=== PATIENT | female | born 1940 | race Caucasian/White ===

== ENCOUNTER 2017-01-19 20:29 | Observation (INO) | payer MEDICARE ==
--- NOTE | 2017-01-19 20:57 | ED ---
Arrhythmia/Palpitations HPI - General Source: patient, RN notes reviewed Mode of arrival: wheelchair Limitations: no limitations - History of Present Illness MD Complaint: palpitations <Sony Fritz - Last Filed: 01/19/17 20:58> <Sony Mukherjee - Last Filed: 01/19/17 22:28> - General Chief Complaint: Arrhythmia/Palpitations Stated Complaint: heart palps Time Seen by Provider: 01/19/17 20:40 - History of Present Illness Initial Comments: This is a 76-year-old female who presents with complaints of elevated heart rate palpitations some lightheadedness and feeling tired. She states she does have a history of elevated heart rate has been on a monitor for 8 days now she also does state that she was recently switched from metoprolol to verapamil 80 mg twice a day. She is only taken 4 pills us far. She denies any overt chest pain does complain some anterior neck discomfort is mild in nature. This still somewhat achy. She has no other complaints such as cough fevers chills sweats or other symptoms. (Sony Fritz) - Related Data Allergies Allergy/AdvReac Type Severity Reaction Status Date / Time latex AdvReac Rash/Hives Verified 01/19/17 20:57 Review of Systems ROS Other: All systems not noted in ROS Statement are negative. <Sony Fritz - Last Filed: 01/19/17 20:58> ROS Other: All systems not noted in ROS Statement are negative. <Sony Mukherjee - Last Filed: 01/19/17 22:28> ROS Statement: Those systems with pertinent positive or pertinent negative responses have been documented in the HPI. Past Medical History Past Medical History: No Reported History History of Any Multi-Drug Resistant Organisms: None Reported Past Surgical History: No Surgical Hx Reported Past Psychological History: No Psychological Hx Reported Smoking Status: Never smoker Past Alcohol Use History: None Reported Past Drug Use History: None Reported <Sony Fritz - Last Filed: 01/19/17 20:58> General Exam Limitations: no limitations General appearance: alert, in no apparent distress Head exam: Present: atraumatic, normocephalic, normal inspection Eye exam: Present: normal appearance, PERRL, EOMI. Absent: scleral icterus, conjunctival injection, periorbital swelling ENT exam: Present: normal exam, mucous membranes moist Neck exam: Present: normal inspection. Absent: tenderness, meningismus, lymphadenopathy Respiratory exam: Present: normal lung sounds bilaterally. Absent: respiratory distress, wheezes, rales, rhonchi, stridor Cardiovascular Exam: Present: regular rate, normal rhythm, normal heart sounds. Absent: systolic murmur, diastolic murmur, rubs, gallop, clicks GI/Abdominal exam: Present: soft, normal bowel sounds. Absent: distended, tenderness, guarding, rebound, rigid Extremities exam: Present: normal inspection, full ROM, normal capillary refill. Absent: tenderness, pedal edema, joint swelling, calf tenderness Back exam: Present: normal inspection Neurological exam: Present: alert, oriented X3, CN II-XII intact Psychiatric exam: Present: normal affect, normal mood Skin exam: Present: warm, dry, intact, normal color. Absent: rash <Sony Fritz - Last Filed: 01/19/17 20:58> <Sony Mukherjee - Last Filed: 01/19/17 22:28> - General Exam Comments Initial Comments: Is a well-developed well-nourished awake alert oriented 3 female (LamSony) EKG Findings - EKG Results: EKG: interpreted by ERMD, sinus rhythm (Sinus rhythm a rate 72. Interval 122 QRS duration 64 daily since QTC of 14/448 evidence of possible left atrial enlargement no acute ST-T wave changes.) <Sony Fritz - Last Filed: 01/19/17 20:58> - EKG Comments: EKG Findings:: EKG shows normal sinus rhythm with a ventricular rate of 72, CO interval 122, QRS duration 64, QTC 448, there is T-wave inversion in V2, otherwise no signs of acute ischemia or infarction <Sony Mukherjee - Last Filed: 01/19/17 22:28> Medical Decision Making <Sony Fritz - Last Filed: 01/19/17 20:58> - Lab Data Result diagrams: 01/19/17 21:13 01/19/17 21:13 <Sony Mukherjee - Last Filed: 01/19/17 22:28> - Medical Decision Making Patient was signed out from the previous physician. 78-year-old female presenting with chief complaint of palpitations. She is currently on a monitor and has had the sensation of a racing heart over the last 24 hours. Denies any chest pain. Does state she has had some nausea throughout the day today. No vomiting. 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 Chest x-ray shows no acute findings. EKG is nonischemic, no arrhythmia. Laboratory studies including CBC, CMP, cardiac enzymes and d-dimer is unremarkable. Although the patient does not have chest pain, she does have some nausea and neck pain. Patient denies any recent stress test or heart catheterization. Patient will be placed in observation for telemetry monitoring, repeat cardiac enzymes, and cardiology evaluation. (Sony Mukherjee) - Lab Data Lab Results 01/19/17 01/19/17 01/19/17 Range/Units 21:13 21:13 21:13 WBC 6.2 (3.8-10.6) k/uL RBC 3.87 (3.80-5.40) m/uL Hgb 12.2 (11.4-16.0) gm/dL Hct 37.8 (34.0-46.0) % MCV 97.6 (80.0-100.0) fL MCH 31.4 (25.0-35.0) pg MCHC 32.2 (31.0-37.0) g/dL RDW 15.1 (11.5-15.5) % Plt Count 244 (150-450) k/uL Neutrophils % 49 % Lymphocytes % 37 % Monocytes % 6 % Eosinophils % 2 % Basophils % 1 % Neutrophils # 3.0 (1.3-7.7) k/uL Lymphocytes # 2.3 (1.0-4.8) k/uL Monocytes # 0.4 (0-1.0) k/uL Eosinophils # 0.1 (0-0.7) k/uL Basophils # 0.1 (0-0.2) k/uL PT (9.0-12.0) sec INR (<1.2) APTT (22.0-30.0) sec D-Dimer (<0.60) mg/L FEU Sodium 140 (137-145) mmol/L Potassium 3.9 (3.5-5.1) mmol/L Chloride 103 (98-107) mmol/L Carbon Dioxide 26 (22-30) mmol/L Anion Gap 11 mmol/L BUN 9 (7-17) mg/dL Creatinine 0.60 (0.52-1.04) mg/dL Est GFR (MDRD) Af Amer >60 (>60 ml/min/1.73 sqM) Est GFR (MDRD) Non-Af >60 (>60 ml/min/1.73 sqM) Glucose 89 (74-99) mg/dL Calcium 9.1 (8.4-10.2) mg/dL Magnesium 1.8 (1.6-2.3) mg/dL Total Bilirubin 0.7 (0.2-1.3) mg/dL AST 18 (14-36) U/L ALT 24 (9-52) U/L Alkaline Phosphatase 106 (38-126) U/L Total Creatine Kinase 48 (30-135) U/L CK-MB (CK-2) 0.6 (0.0-2.4) ng/mL CK-MB (CK-2) Rel Index 1.3 Troponin I <0.012 (0.000-0.034) ng/mL Total Protein 6.7 (6.3-8.2) g/dL Albumin 4.2 (3.5-5.0) g/dL 01/19/17 Range/Units 21:13 WBC (3.8-10.6) k/uL RBC (3.80-5.40) m/uL Hgb (11.4-16.0) gm/dL Hct (34.0-46.0) % MCV (80.0-100.0) fL MCH (25.0-35.0) pg MCHC (31.0-37.0) g/dL RDW (11.5-15.5) % Plt Count (150-450) k/uL Neutrophils % % Lymphocytes % % Monocytes % % Eosinophils % % Basophils % % Neutrophils # (1.3-7.7) k/uL Lymphocytes # (1.0-4.8) k/uL Monocytes # (0-1.0) k/uL Eosinophils # (0-0.7) k/uL Basophils # (0-0.2) k/uL PT 10.0 (9.0-12.0) sec INR 1.0 (<1.2) APTT 22.3 (22.0-30.0) sec D-Dimer 0.44 (<0.60) mg/L FEU Sodium (137-145) mmol/L Potassium (3.5-5.1) mmol/L Chloride (98-107) mmol/L Carbon Dioxide (22-30) mmol/L Anion Gap mmol/L BUN (7-17) mg/dL Creatinine (0.52-1.04) mg/dL Est GFR (MDRD) Af Amer (>60 ml/min/1.73 sqM) Est GFR (MDRD) Non-Af (>60 ml/min/1.73 sqM) Glucose (74-99) mg/dL Calcium (8.4-10.2) mg/dL Magnesium (1.6-2.3) mg/dL Total Bilirubin (0.2-1.3) mg/dL AST (14-36) U/L ALT (9-52) U/L Alkaline Phosphatase (38-126) U/L Total Creatine Kinase (30-135) U/L CK-MB (CK-2) (0.0-2.4) ng/mL CK-MB (CK-2) Rel Index Troponin I (0.000-0.034) ng/mL Total Protein (6.3-8.2) g/dL Albumin (3.5-5.0) g/dL Disposition <Sony Fritz - Last Filed: 01/19/17 20:58> Decision to Admit Reason: Admit from EC Decision Date: 01/19/17 Decision Time: 22:28 <Sony Mukherjee - Last Filed: 01/19/17 22:28> Clinical Impression: Palpitations Disposition: ADMITTED IP TO THIS [facility] Condition: Stable Referrals: Brenda Lawrence DO [Primary Care Provider] - 1-2 days
[2017-01-19 21:28] LABS: Aty Lym Flag Slight; Basophils # (A) 0.1 k/uL (0-0.2); Basophils % (A) 1 %; CH 32.5; CHCM 33.5; Eosinophils # (A) 0.1 k/uL (0-0.7); Eosinophils % (A) 2 %; HCT 37.8 % (34.0-46.0); HDW 2.56; HGB 12.2 gm/dL (11.4-16.0); Luc # (Auto) 0.32; Luc % (Auto) 5; Lymphocytes # (A) 2.3 k/uL (1.0-4.8); Lymphocytes % (A) 37 %; MCH 31.4 pg (25.0-35.0); MCHC 32.2 g/dL (31.0-37.0); MCV 97.6 fL (80.0-100.0); Mean Platelet Volume 7.9; Monocytes # (A) 0.4 k/uL (0-1.0); Monocytes % (A) 6 %; Neutrophils % (A) 49 %; RBC 3.87 m/uL (3.80-5.40); RDW 15.1 % (11.5-15.5); WBC 6.2 k/uL (3.8-10.6); WBC (Perox) 5.88
[2017-01-19 21:42] LABS: Partial Thromboplastin Time 22.3 sec (22.0-30.0)
[2017-01-19 22:00] LABS: ALT 24 U/L (9-52); AST 18 U/L (14-36); Alkaline Phosphatase 106 U/L (38-126); Anion Gap 11 mmol/L; Blood Urea Nitrogen 9 mg/dL (7-17); Calcium 9.1 mg/dL (8.4-10.2); Carbon Dioxide 26 mmol/L (22-30); Chloride 103 mmol/L (98-107); Creatine Kinase 48 U/L (30-135); Glucose 89 mg/dL (74-99); Magnesium 1.8 mg/dL (1.6-2.3); Non-African American GFR(MDRD) >60 (>60 ml/min/1.73 sqM); Potassium 3.9 mmol/L (3.5-5.1); Sodium 140 mmol/L (137-145); Total Bilirubin 0.7 mg/dL (0.2-1.3); Total Protein 6.7 g/dL (6.3-8.2)
[2017-01-19 22:11] LABS: Creatine Kinase MB 0.6 ng/mL (0.0-2.4); Troponin I <0.012 ng/mL (0.000-0.034)
--- NOTE | 2017-01-19 22:15 | XR ---
EXAM: XR Chest, 2 Views CLINICAL HISTORY: Reason: dysrhythmia TECHNIQUE: Frontal and lateral views of the chest. COMPARISON: No relevant prior studies available. FINDINGS: Lungs: No lobar consolidation or pulmonary edema. Surgical clips demonstrated in the axilla bilaterally as well as overlying the left pulmonary base. Pleural space: Unremarkable. No pneumothorax. Heart: Unremarkable. No cardiomegaly. Mediastinum: Unremarkable. Bones/joints: Unremarkable. IMPRESSION: No acute findings.
[2017-01-19] MEDS ORDERED: NALOXONE 0.4 MG/ML 1 ML VIAL IV PRN (22:17)
[2017-01-19] MEDS ORDERED: ONDANSETRON 4 MG/2 ML VIAL IVP PRN (22:17)
[2017-01-19] MEDS ORDERED: ASPIRIN 325 MG TAB PO STA (22:23)
[2017-01-19] MEDS ORDERED: SODIUM CHLORIDE 0.9% 1,000 ML IV SCH (22:30)
[2017-01-19 23:36] VITALS: BMI 27.1
[2017-01-20 04:43] LABS: Creatine Kinase 45 U/L (30-135)
[2017-01-20 04:56] LABS: Creatine Kinase MB 0.5 ng/mL (0.0-2.4); Troponin I <0.012 ng/mL (0.000-0.034)
[2017-01-20] MEDS ORDERED: VERAPAMIL 80 MG TAB PO SCH (09:00)
[2017-01-20 09:18] LABS: Creatine Kinase 48 U/L (30-135)
[2017-01-20 09:32] LABS: Creatine Kinase MB 0.5 ng/mL (0.0-2.4); Troponin I <0.012 ng/mL (0.000-0.034)
[2017-01-20] MEDS: ASPIRIN 81 MG PO SCH (10:40)
--- NOTE | 2017-01-20 12:38 | CONS ---
Mrs. Butler came to the hospital complaining of palpitations and nausea. She is a patient of Dr. Raquel Mckeon. She is wearing an event monitor for SVT. She was originally on beta blockers. Three days back this was switched to verapamil 80 mg twice daily. Here in the hospital she has had 2 episodes of SVT. She is also complaining of nausea. Blood pressure is normal. Heart rates are normal. She has no bradycardia. She has no evidence for bradycardia. Past history of hypertension, normal coronary arteries in 2010, normal left ventricular ejection fraction and a history of bronchiectasis and interstitial lung disease right upper lobe area. Medications include aspirin, atorvastatin, Imitrex and verapamil 80 mg twice daily p.o. short acting. She has hypertension and dyslipidemia and pulmonary hypertension. She also has an aneurysm of the ascending aorta measuring about [address] scan in July , being followed noninvasively. REVIEW OF SYSTEMS: No fever, chills or rigors. No cough or expectoration. She does have nausea, no vomiting, no diarrhea, no hematuria. No musculoskeletal complaints. She does complain of palpitations. Heart sounds are normal. No murmurs or gallops. Breath sounds are clear. I do not hear any rhonchi or crackles. Abdomen is soft, nontender. Extremities are warm. Head and neck examination normal. IMPRESSION: Recurrent supraventricular tachycardia, drug refractory, as she has failed metoprolol, now she is on verapamil for three days. She continues to have palpitations. She is ( ) with an EP study and does not want to do so. She stated this quite clearly to me. I would check a TSH level, switch to a long-acting verapamil 180 mg p.o. daily. I would observe her on telemetry for the next 48 hours to make sure she does not get bradycardiac and that she does not have breakthrough episodes. I would maximize her verapamil and even consider adding low dose flecainide for suppressive therapy especially if she does not want to proceed with an EP study. MTDD
[2017-01-20] MEDS: VERAPAMIL SR 180 MG TABLET.ER PO SCH (16:31)
[2017-01-20] MEDS ORDERED: ATORVASTATIN 10 MG TAB PO SCH (22:00)
--- NOTE | 2017-01-20 22:30 | P.HPIM ---
History of Present Illness H&P Date: 01/20/17 Chief Complaint: Palpitations This is a 76-year-old female with a past medical history of hypertension, SVT on follow-up with cardiology clinic currently on event monitor presents with complaints of elevated heart rate palpitations some lightheadedness and feeling tired. Patient was seen by cardiology recently and her beta blockers have been changed to verapamil 80 mg twice a day. She has no other complaints such as cough fevers chills sweats or other symptoms. Patient had a chest x-ray showed no acute process. EKG showed sinus rhythm. TSH within normal limits at 1.8 Review of Systems CONSTITUTIONAL: No fever, no malaise, no fatigue. HEENT: No recent visual problems or hearing problems. Denied any sore throat. CARDIOVASCULAR: No chest pain, orthopnea, PND, no palpitations, no syncope. PULMONARY: , no hemoptysis. GASTROINTESTINAL: No diarrhea, no nausea, no vomiting, no abdominal pain. Normoactive bowel sounds. NEUROLOGICAL: No headaches, no weakness, no numbness. HEMATOLOGICAL: Denies any bleeding or petechiae. GENITOURINARY: Denies any burning micturition, frequency, or urgency. MUSCULOSKELETAL/RHEUMATOLOGICAL: Denies any joint pain, swelling, or any muscle pain. ENDOCRINE: Denies any polyuria or polydipsia. The rest of the 14-point review of systems is negative. 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 breast ca norma, AAA - being watched 08/2016 CT done History of Any Multi-Drug Resistant Organisms: None Reported Past Surgical History: Back Surgery, Bladder Surgery, Cholecystectomy, Hernia Repair, Hysterectomy Additional Past Surgical History / Comment(s): right breast lumpectomy, left mastectomy with reconstruction Past Anesthesia/Blood Transfusion Reactions: No Reported Reaction Past Psychological History: No Psychological Hx Reported Smoking Status: Never smoker Past Alcohol Use History: None Reported Past Drug Use History: None Reported - Past Family History Mother Additional Family Medical History / Comment(s): "heart problems" Father Family Medical History: COPD Brother(s) Family Medical History: Cancer Additional Family Medical History / Comment(s): at 18 from [place] Medications and Allergies Home Medications Medication Instructions Recorded Confirmed Type Ascorbic Acid [Vitamin C] 500 mg PO DAILY 01/19/17 01/19/17 History Aspirin EC [Ecotrin Low Dose] 162 mg PO DAILY 01/19/17 01/19/17 History Atorvastatin [Lipitor] 10 mg PO Q48H 01/19/17 01/19/17 History Cholecalciferol (Vitamin D3) 2,000 unit PO DAILY 01/19/17 01/19/17 History [Vitamin D3] Multivitamins, Thera [Multivitamin 1 tab PO DAILY 01/19/17 01/19/17 History (formulary)] SUMAtriptan SUCCINATE [Imitrex] 50 - 100 mg PO DAILY PRN 01/19/17 01/19/17 History Verapamil [Isoptin] 80 mg PO BID 01/19/17 01/19/17 History Allergies Allergy/AdvReac Type Severity Reaction Status Date / Time latex AdvReac Rash/Hives Verified 01/19/17 20:57 Physical Exam Vitals: Vital Signs Temp Pulse Pulse Pulse Resp BP BP 01/20/17 16:00 98.2 F 72 16 129/64 01/20/17 12:00 98.1 F 97 16 150/74 01/20/17 08:00 97.8 F 79 14 135/73 01/20/17 04:18 97.9 F 76 16 116/66 01/20/17 04:00 84 16 01/20/17 00:00 83 16 01/19/17 23:04 97.7 F 73 16 137/70 01/19/17 22:16 97.4 F L 70 18 140/76 01/19/17 21:18 70 01/19/17 20:42 97.5 F L 83 20 154/72 Pulse Ox 01/20/17 16:00 92 L 01/20/17 12:00 92 L 01/20/17 08:00 94 L 01/20/17 04:18 93 L 01/20/17 04:00 01/20/17 00:00 01/19/17 23:04 96 01/19/17 22:16 97 01/19/17 21:18 01/19/17 20:42 91 L Intake and Output 01/20/17 01/20/17 01/20/17 06:59 14:59 22:59 Other: Voiding Method Toilet Toilet # Voids 2 PHYSICAL EXAMINATION: Patient is lying in the bed comfortably, no acute distress, awake alert and oriented.. HEENT: Normocephalic. Neck is supple. Pupils reactive. Nostrils clear. Oral cavity is moist. Ears reveal no drainage. Neck reveals no JVD, carotid bruits, or thyromegaly. CHEST EXAMINATION: Trachea is central. Symmetrical expansion. Lung castano clear to auscultation and percussion. CARDIAC: Normal S1, S2 with no gallops. No murmurs ABDOMEN: Soft. Bowel sounds normal. No organomegaly. No abdominal bruits. Extremities reveal no edema. No clubbing or cyanosis Neurologically awake, alert, oriented x3 with well-coordinated movements. Skin: no rash or skin lesions Musculoskeletal: no joint swelling or deformity. Results CBC & Chem 7: 01/19/17 21:13 01/19/17 21:13 Thrombosis Risk Factor Assmnt - Choose All That Apply Each Risk Factor Represents 3 Points: Age 75 years or older Thrombosis Risk Factor Assessment Total Risk Factor Score: 3 Thrombosis Risk Factor Assessment Level: Moderate Risk Assessment and Plan Plan: Palpitations secondary to supraventricular tachycardia. Ascending aortic aneurysm 4 cm Hypertension Hyperlipidemia DVT prophylaxis Plan: Patient will be continued on telemetry. Patient was seen by cardiology and increase the verapamil dose to 3 times daily. Patient failed outpatient therapy with metoprolol. Serial EKGs and troponins are negative. TSH within normal limits. We'll continue to monitor the patient and further recommendations based on the clinical course
[2017-01-20] MEDS: ACETAMINOPHEN TAB 325 MG TAB PO PRN (23:27)
[2017-01-21] MEDS: ACETAMINOPHEN TAB 325 MG TAB PO PRN (07:57)
--- NOTE | 2017-01-21 07:58 | P.PN ---
Subjective Principal diagnosis: svt Patient is doing well. She has not had any sustained arrhythmias since yesterday after verapamil as are 180 mg by mouth daily was instituted. However she did get verapamil regular, 80 mg in the morning prior to that. Therefore we should observe her on verapamil SR 180 mg a day for at least a week before making any changes in her medication dose. She denies any chest discomfort undue shortness of breath she is lying comfortably in bed No arrhythmias, sustained, on telemetry Heart sounds S1 and S2 are normal no murmurs or gallops Breath sounds are normal no rhonchi no crackles Abdomen soft nontender Extremities warm no edema Blood pressure 134/71 mmHg respiratory rate 16 pulse rate in the 80s, afebrile 98.1F Impression Recurrent supraventricular tachycardia, symptomatic and rapid beta ravi. She had episodes on verapamil short-acting 80 mg twice daily 3 days after starting the medication. Yesterday I switched her to long-acting verapamil 180 mg by mouth daily. She has not had any episodes for the last 12-18 hours. History of dyslipidemia, on atorvastatin Patient is quite adamant that she does not want an EP study and would prefer maximal medical treatment Plan She will go home today and see Dr. Mckeon in about 2 weeks he did she already has an event monitor which she should continue The dose of verapamil can be increased to 240 mg by mouth daily only if she feels the current dose after being on it for at least one week Objective - Vital Signs Vital signs: Vital Signs Temp 98.1 F 01/21/17 04:00 Pulse 99 01/21/17 04:00 Resp 16 01/21/17 04:00 BP 134/71 01/21/17 04:00 Pulse Ox 96 01/21/17 04:00 Intake & Output 01/20/17 01/21/17 01/21/17 18:59 06:59 18:59 Weight 67.132 kg Other: Voiding Method Toilet Toilet # Voids 3 - Labs CBC & Chem 7: 01/19/17 21:13 01/19/17 21:13
[2017-01-21] MEDS: ASPIRIN 81 MG PO SCH (07:59)
[2017-01-21] MEDS: VERAPAMIL SR 180 MG TABLET.ER PO SCH (07:59)
[2017-01-21] MEDS ORDERED: VERAPAMIL SR 180 MG TABLET.ER PO SCH (09:00)
[2017-01-21 12:07] VITALS: RESP 16
[2017-01-21 16:03] VITALS: BP 102/54; PULSE 71; TEMP 98
--- NOTE | 2017-01-23 01:21 | P.DS ---
Providers Date of admission: 01/19/17 22:23 Expected date of discharge: 01/21/17 Attending physician: Laney Davis Consults: 01/19/17 22:20 Consult Physician Urgent Consulting Provider: Antoni Marin Consult Reason/Comments: Palpitations, Do you want consulting provider notified?: Yes, Notify in am Primary care physician: Brenda Lawrence Hospital Course: Discharge diagnosis Palpitations secondary to supraventricular tachycardia. Ascending aortic aneurysm 4 cm Hypertension Hyperlipidemia DVT prophylaxis Hospital course This is a 76-year-old female with a past medical history of hypertension, SVT on follow-up with cardiology clinic currently on event monitor presents with complaints of elevated heart rate palpitations some lightheadedness and feeling tired. Patient was seen by cardiology recently and her beta blockers have been changed to verapamil 80 mg twice a day. She has no other complaints such as cough fevers chills sweats or other symptoms. Patient had a chest x-ray showed no acute process. EKG showed sinus rhythm. TSH within normal limits at 1.8 Patient was continued on telemetry. Patient was seen by cardiology and increased the verapamil dose to 3 times daily. Patient failed outpatient therapy with metoprolol. Serial EKGs and troponins are negative. TSH within normal limits. Patient did improve clinically today. Heart rate is better controlled. Verapamil changed to 180 mg SR daily and Patient is Stable to be discharged home. PHYSICAL EXAMINATION: Patient is lying in the bed comfortably, no acute distress, awake alert and oriented.. HEENT: Normocephalic. Neck is supple. Pupils reactive. Nostrils clear. Oral cavity is moist. Ears reveal no drainage. Neck reveals no JVD, carotid bruits, or thyromegaly. CHEST EXAMINATION: Trachea is central. Symmetrical expansion. Lung castano clear to auscultation and percussion. CARDIAC: Normal S1, S2 with no gallops. No murmurs ABDOMEN: Soft. Bowel sounds normal. No organomegaly. No abdominal bruits. Extremities reveal no edema. No clubbing or cyanosis Neurologically awake, alert, oriented x3 with well-coordinated movements. Skin: no rash or skin lesions Musculoskeletal: no joint swelling or deformity. Patient Condition at Discharge: Stable Plan - Discharge Summary New Discharge Prescriptions: New Verapamil Sr [Isoptin Sr] 180 mg PO Q24H tab Continue Aspirin EC [Ecotrin Low Dose] 162 mg PO DAILY Ascorbic Acid [Vitamin C] 500 mg PO DAILY SUMAtriptan SUCCINATE [Imitrex] 50 - 100 mg PO DAILY PRN PRN Reason: Migraine Headache Multivitamins, Thera [Multivitamin (formulary)] 1 tab PO DAILY Cholecalciferol (Vitamin D3) [Vitamin D3] 2,000 unit PO DAILY Atorvastatin [Lipitor] 10 mg PO Q48H Discontinued Verapamil [Isoptin] 80 mg PO BID Discharge Medication List Ascorbic Acid [Vitamin C] 500 mg PO DAILY 01/19/17 [History] Aspirin EC [Ecotrin Low Dose] 162 mg PO DAILY 01/19/17 [History] Atorvastatin [Lipitor] 10 mg PO Q48H 01/19/17 [History] Cholecalciferol (Vitamin D3) [Vitamin D3] 2,000 unit PO DAILY 01/19/17 [History] Multivitamins, Thera [Multivitamin (formulary)] 1 tab PO DAILY 01/19/17 [History ] SUMAtriptan SUCCINATE [Imitrex] 50 - 100 mg PO DAILY PRN 01/19/17 [History] Verapamil Sr [Isoptin Sr] 180 mg PO Q24H tab 01/21/17 [Rx] Follow up Appointment(s)/Referral(s): Carmella Mckeon MD [STAFF PHYSICIAN] - 1 Week Brenda Lawrence DO [Primary Care Provider] - 1-2 days Activity/Diet/Wound Care/Special Instructions: keep event monitor on. see Dr. Marisol Mckeon week of - Feb. 1 New script for verapamil ER Discharge Disposition: HOME SELF-CARE
== END 2017-01-21 16:15 | disposition home or self-care (01) ==
LOC: EC 20:29 → 3OBS 22:23
PROVIDERS: ADMIT Hospitalist; ATTEND Hospitalist
DX: I47.1 Supraventricular tachycardia (principal); R11.0 Nausea; M54.2 Cervicalgia; I71.2 Thoracic aortic aneurysm, without rupture; I27.2 Other secondary pulmonary hypertension; I10 Essential (primary) hypertension; E78.5 Hyperlipidemia, unspecified; G43.909 Migraine, unspecified, not intractable, without status migrainosus; E78.00 Pure hypercholesterolemia, unspecified; Z79.899 Other long term (current) drug therapy; Z79.82 Long term (current) use of aspirin; Z82.5 Family history of asthma and other chronic lower respiratory diseases; Z85.3 Personal history of malignant neoplasm of breast; Z92.3 Personal history of irradiation; Z91.040 Latex allergy status
CPT/HCPCS: 96361 ×2; 96374; 99285; 36415; 93005; 85379; 80053; 82550 ×2; 82553 ×2; 83735; 84443; 84484 ×2; 85025; 85610; 85730; 71020; G0378 ×3; J2405

== ENCOUNTER → 2018-03-06 | Outpatient (CLI) | payer MEDICARE ==
[2018-03-06 13:17] LABS: Blood Urea Nitrogen 13 mg/dL (7-17)
--- NOTE | 2018-03-06 16:35 | CT ---
EXAMINATION TYPE: CT urogram wo/w con DATE OF EXAM: 03/06/2018 COMPARISON: CT abdomen pelvis 09/17/2014 INDICATION: hematuria DLP: 1327.90 mGycm, Automated exposure control for dose reduction was used. CONTRAST: 100 mL of Isovue 370. Study performed TECHNIQUE: Axial images were obtained from above the diaphragm to the pubic rami in the axial plane a t 5 mm thick sections. Reconstructed images are reviewed on the computer in the coronal plane. FINDINGS: Limited CT sections are obtained the lung bases. The lung bases are clear. Coronary artery calcific ations present. CT ABDOMEN: Liver: Normal Spleen: Normal Pancreas: Normal Adrenal glands: The adrenal glands are normal. Gallbladder: Surgically absent Kidneys: No masses are evident. No hydronephrosis is present. No cysts are present. Delayed images were obtained through the kidneys, which remain unremarkable. Aorta: Vascular calcification is within the aorta. Inferior vena cava: Normal. CT PELVIS: Loops of bowel within the abdomen and pelvis are normal. Studies performed without oral contrast limiting their evaluation. Appendix: Normal as visualized. Urinary bladder: Normal. Genitourinary structures: Uterus and ovaries are not identified. Osseous structures: No suspicious lytic or sclerotic lesions. Multilevel degenerative disc changes ar e present. 3-D urogram: Sequential images were obtained through the kidneys ureter and bladder. Renal contours a ppear normal. Renal collecting systems are normal. Kidneys on sequential images following normal jose randee course and contour to the urinary bladder. Urinary bladder appears unremarkable. IMPRESSIONS: 1. Normal CT urogram
== END | disposition home or self-care (01) ==
LOC: RADCTMAIN 12:36
PROVIDERS: ATTEND Urology
DX: R31.9 Hematuria, unspecified (principal); Z91.040 Latex allergy status
CPT/HCPCS: 82565; 84520; 74178; 74400; Q9967

== ENCOUNTER → 2019-05-16 | Outpatient (CLI) | payer MEDICARE ==
[2019-05-16 17:23] LABS: African American GFR (CKD) >90 (>60 ml/min/1.73 sqM); Blood Urea Nitrogen 16 mg/dL (7-17); Non-African American GFR(CKD) 87 (>60 ml/min/1.73 sqM)
--- NOTE | 2019-05-19 13:41 | CT ---
EXAMINATION TYPE: CT angio thor/abd pel aorta DATE OF EXAM: 05/16/2019 HISTORY: followup aneurysm COMPARISON: 09/17/2014 CT DLP: 445 mGycm. Automated Exposure Control for Dose Reduction was Utilized. TECHNIQUE: CTA scan of the chest abdomen pelvis is performed on a spiral scan at 5 mm thick sections . Three-D reconstructed images performed by the technologist are reviewed on the computer. FINDINGS: Aorta: Ascending thoracic aorta at the level the main pulmonary artery is 4.1 cm. The main pulmonary artery the bifurcation is 2.6 cm. Aortic root is 4.0 cm. Transverse thoracic aortic arch is 3.1 cm. Descending thoracic aorta at the le tangela of the diaphragm is 2.2 cm. Proximal abdominal aorta below the superior mesenteric artery is 1.8 cm AP. There are 2 renal arteries. Below the renal arteries the AP dimension is 2.0 cm. The aorta tap ers to the bifurcation. Vascular calcifications within the aorta. Vascular calcifications within the iliac vessels. The common femoral arteries are patent. CT thorax: Some mild coronary artery calcification is present. Some mild streak opacities at the righ t base may be some atelectasis. No enlarged mediastinal or hilar adenopathy is evident. There is a 1.1 cm lymph node in the retrocrural space which is enlarged. Normal less than 0.[address] ABDOMEN: At this phase of contrast the liver spleen pancreas are normal. Gallbladder is surgically absent. The adrenal glands are unremarkable. Kidneys appear unremarkable. Vascular calcifications wi thin the aorta. Inferior vena cava is normal. Loops of bowel without oral contrast appear unremarkabl e CT PELVIS: Loops of bowel within the pelvis have some diverticular changes without acute diverticulit is of the sigmoid colon. The appendix is normal and air-filled. Urinary bladder is unremarkable the u terus and ovaries appear to be absent. IMPRESSION: 1. Ascending thoracic aortic aneurysm with an AP dimension of 4.1 cm at the level the main pulmonary artery. 2. Remainder of the chest abdomen and pelvis within the [id number] is essentially unremarkable.
== END | disposition home or self-care (01) ==
LOC: RADCTMAIN 16:26
PROVIDERS: ATTEND Internal Medicine Interventional Cardiology
DX: I71.2 Thoracic aortic aneurysm, without rupture (principal); I71.4 Abdominal aortic aneurysm, without rupture; Z91.040 Latex allergy status
CPT/HCPCS: 82565; 84520; 71275; 36415; 74174; Q9967

== ENCOUNTER 2020-04-08 12:55 | Day surgery (SDC) | payer MEDICARE ==
[2020-04-05 09:26] VITALS: BMI 27.0
[2020-04-08] MEDS: SODIUM CHLORIDE 0.9% 1,000 ML IV SCH (13:33)
[2020-04-08 14:12] LABS: African American GFR (CKD) >90 (>60 ml/min/1.73 sqM); Anion Gap 7 mmol/L; Blood Urea Nitrogen 12 mg/dL (7-17); Calcium 9.6 mg/dL (8.4-10.2); Carbon Dioxide 29 mmol/L (22-30); Chloride 102 mmol/L (98-107); Glucose 97 mg/dL (74-99); Non-African American GFR(CKD) 85 (>60 ml/min/1.73 sqM); Potassium 4.2 mmol/L (3.5-5.1); Sodium 138 mmol/L (137-145)
[2020-04-08] MEDS ORDERED: fentaNYL (PF) 50 MCG/ML 2 ML AMP ONE (16:00)
[2020-04-08] MEDS ORDERED: MIDAZOLAM 2 MG/2 ML VIAL ONE (16:00)
[2020-04-08] MEDS ORDERED: ISOPROTERENOL 250 MCG/1.25 ML SYR IV ONE (16:00)
[2020-04-08] MEDS ORDERED: LIDOCAINE 1% INJ 10MG/ML (20 ML MDV) SQ ONE (16:28)
--- NOTE | 2020-04-08 17:48 | P.PRLE ---
RE: Chel Butler Dear Dr. Melinda Milligan underwent a diagnostic EP study for recurrent palpitations which looked like atrial fibrillation/irregular atrial tachycardia However at the EP study, on Isuprel. Would induce multifocal atrial tachycardia, no atrial fibrillation no regular atrial tachycardia could be induced At this time I would recommend medical treatment therapy with verapamil and low- dose flecainide only Thank you for entrusting me with the care of the patient Warm regards Sincerely Antoni Marin
[2020-04-08 18:10] VITALS: RESP 16
[2020-04-08] MEDS ORDERED: ALBUTEROL NEBULIZED 2.5 MG/3 ML INHALATION PRN (18:16)
[2020-04-08] MEDS ORDERED: ACETAMINOPHEN TAB 325 MG TAB PO PRN (18:18)
--- NOTE | 2020-04-08 18:22 | P.EPPROC ---
- EP Procedure Note Electrophysiology Procedure Note: Diagnosis Recurrent irregular SVT with RVR, symptomatic despite verapamil Final diagnosis Multifocal atrial tachycardia No atrial fibrillation induced No SVT induced Patient brought in for an EP study to make a diagnosis of initiating atrial tachycardia and atrial fibrillation and proceed with an ablation as clinically indicated Patient brought to the EP lab in a fasting state with informed consent was obtained prior to the procedure the right and left groins were prepped and draped as a protocol. 1% lidocaine used for local anesthesia via sheaths were placed in the right left femoral veins and why these diagnostic catheters placed in the right heart in the right ventricle, His bundle area Bryan sinus and high right atrium. Isuprel was used A detailed EP study is performed Sinus cycle length 578 ms, QRS 75 ms, QRS 3-D 6 ms and NJ interval 144 ms AH interval 46 ms and HV interval 37 ms VA Wenckebach block to 90 ms Sinus node recovery times at 504 100 ms was 783 and 753 ms. Corrected sinus node recovery times abnormal AV node Wenckebach block 370 ms AV node ERP 450/300 ms Atrial ERP from the high right atrium 450/to 70 ms Burst stimulation was performed from the high right atrium. Burst ablation was performed from the multiple sites in the Bryan sinus Only PACs of different morphologies were induced Extra stimulation after double access to my is performed from the high right atrium and coronary sinus. Bursts of MAT induced High dose Isuprel employed. Later this was reduced at 2 mics Spontaneous bursts of irregular atrial tachycardia with varying activation patterns consistent with MAT Burst stimulation was once again performed from multiple sites. Only bursts of MAT was induced Isuprel was stopped and atrial extra stimulation and burst stimulation was performed There is no evidence for atrial fibrillation or SVT All catheters were then removed and patient was transferred back telemetry Procedure performed Compressive diagnostic EP study with attempted arrhythmia induction CS pacing and recording Programmed stimulation following Isuprel
[2020-04-08] MEDS ORDERED: ATORVASTATIN 20 MG TAB PO SCH (18:30)
[2020-04-08] MEDS: METOPROLOL TARTRATE 25 MG TAB PO SCH (23:22)
[2020-04-08] MEDS: LACTATED RINGERS 1,000 ML IV SCH (23:25)
[2020-04-08] MEDS: FLECAINIDE 50 MG TAB PO SCH (23:41)
[2020-04-09] MEDS: LACTATED RINGERS 1,000 ML IV SCH (04:53)
[2020-04-09 06:16] VITALS: TEMP 97.8
[2020-04-09] MEDS: SODIUM CHLORIDE 0.9% 1,000 ML IV SCH (06:18)
--- NOTE | 2020-04-09 07:50 | P.DS ---
Providers Attending physician: Antoni Marin Primary care physician: Brenda Haney [facility] Course: Patient is doing well. No chest discomfort no dizziness lightheadedness or palpitations No groin discomfort No hematoma no swelling minimal tenderness But pressure 116/67 mmHg pulse rate in the 70s Afebrile Normal heart sounds normal S1 normal S2 no murmurs no gallops no rub Clear breath sounds no rhonchi no crackles Soft abdomen nontender line no swelling the groins Impression patient has recurrent palpitations despite 180 mg daily This looks like irregular atrial tachycardia versus atrial fibrillation However the EP study she had bursts of MAT rather then a consistent focal/reentr ant atrial tachycardia There was no evidence for atrial fibrillation despite high-dose Isuprel stimulation and exit stimulation from multiple sites in the atria and coronary sinus At this time I would recommend a low-dose flecainide for suppressive therapy She will hold off on ELIQUIS for now If in the future she has rhythm that looks like atrial fibrillation, and she has no bleeding issues then ELIQUIS may be started again For now, based in the study I feel she has MAT with RVR that is not responding completely to Verapamil Plan - Discharge Summary Discharge Rx Participant: No New Discharge Prescriptions: New Flecainide [Tambocor] 50 mg PO Q12HR #180 tablet Discontinued Apixaban [Eliquis] 5 mg PO BID No Action Aspirin EC [Ecotrin Low Dose] 81 mg PO DAILY Ascorbic Acid [Vitamin C] 1,000 mg PO DAILY SUMAtriptan succinate [Imitrex] 50 mg PO DIRECTED PRN PRN Reason: Migraine Headache Multivitamins, Thera [Multivitamin (formulary)] 1 tab PO DAILY Cholecalciferol (Vitamin D3) [Vitamin D3] 4,000 unit PO DAILY Albuterol Inhaler [Ventolin Hfa Inhaler] 2 puff INHALATION DIRECTED PRN PRN Reason: sob traMADol HCL [Ultram] 50 mg PO Q6HR PRN PRN Reason: Pain Atorvastatin [Lipitor] 20 mg PO PC-SUPPER Metoprolol Tartrate [Lopressor] 25 mg PO TID Verapamil Sr [Isoptin Sr] 180 mg PO QAM Discharge Medication List Ascorbic Acid [Vitamin C] 1,000 mg PO DAILY 01/19/17 [History] Aspirin EC [Ecotrin Low Dose] 81 mg PO DAILY 01/19/17 [History] Cholecalciferol (Vitamin D3) [Vitamin D3] 4,000 unit PO DAILY 01/19/17 [History] Multivitamins, Thera [Multivitamin (formulary)] 1 tab PO DAILY 01/19/17 [ History] SUMAtriptan succinate [Imitrex] 50 mg PO DIRECTED PRN 01/19/17 [History] Albuterol Inhaler [Ventolin Hfa Inhaler] 2 puff INHALATION DIRECTED PRN 04/05/20 [History] Atorvastatin [Lipitor] 20 mg PO PC-SUPPER 04/05/20 [History] Metoprolol Tartrate [Lopressor] 25 mg PO TID 04/05/20 [History] Verapamil Sr [Isoptin Sr] 180 mg PO QAM 04/05/20 [History] traMADol HCL [Ultram] 50 mg PO Q6HR PRN 04/05/20 [History] Flecainide [Tambocor] 50 mg PO Q12HR #180 tablet 04/08/20 [Rx] Follow up Appointment(s)/Referral(s): Carmella Mckeon MD [STAFF PHYSICIAN] - 1 Week Activity/Diet/Wound Care/Special Instructions: Post EP study - Ablation instructions 1. Keep access sites dry for 2 days. 2. No heavy lifting or straining for 2 days. 3. Avoid bending the hips repeatedly for 2 days. 4. You may go up and down stairs slowly Call if the following is noted 1. Bleeding, increasing swelling or pain at the access sites. 2. Increasing chest discomfort, especially upon taking a deep breath. 3. Increasing shortness of breath, at rest or with exertion. 4. Undue cough / phlegm 5. Difficulty or pain while swallowing. 6. Pain or change in color in the extremities. 7. Fever, chills, rigors. 8. Increasing headache or neurologic symptoms. 9. Dizziness, fainting, palpitations Stop ELIQUIS Start flecainide 50 g twice daily Continue verapamil Continue aspirin Discharge Disposition: HOME SELF-CARE
[2020-04-09 08:26] VITALS: BP 122/68; PULSE 77
[2020-04-09] MEDS: FLECAINIDE 50 MG TAB PO SCH (08:31)
[2020-04-09] MEDS: METOPROLOL TARTRATE 25 MG TAB PO SCH (08:32)
[2020-04-09] MEDS ORDERED: VERAPAMIL SR 180 MG TABLET.ER PO SCH (09:00)
[2020-04-09] MEDS ORDERED: ASPIRIN 81 MG PO SCH (09:00)
== END 2020-04-09 11:15 | disposition home or self-care (01) ==
LOC: CATHEP 12:55 → 3NCARDOBS 18:01 → CATHEP 04-09 11:15
PROVIDERS: ATTEND Internal Medicine Clinical Cardiac Electrophysiology
DX: I47.1 Supraventricular tachycardia (principal); I10 Essential (primary) hypertension; I71.2 Thoracic aortic aneurysm, without rupture; I27.20 Pulmonary hypertension, unspecified; E78.00 Pure hypercholesterolemia, unspecified; E78.5 Hyperlipidemia, unspecified; J45.909 Unspecified asthma, uncomplicated; J84.10 Pulmonary fibrosis, unspecified; Z79.01 Long term (current) use of anticoagulants; Z79.82 Long term (current) use of aspirin; Z79.899 Other long term (current) drug therapy; Z91.040 Latex allergy status; Z98.890 Other specified postprocedural states; Z85.3 Personal history of malignant neoplasm of breast; Z90.710 Acquired absence of both cervix and uterus
CPT/HCPCS: 93623; 93620; 80048; C1894; C1769 ×2; C1730 ×3; J2250; J2001; J3010

== ENCOUNTER 2020-04-14 23:36 | Observation (INO) | payer MEDICARE ==
[2020-04-15] MEDS ORDERED: NITROGLYCERIN SL TABS 0.4 MG TAB SUBLINGUAL PRN (00:11)
[2020-04-15] MEDS ORDERED: traMADol 50 MG TAB PO PRN (00:14)
--- NOTE | 2020-04-15 00:55 | ED ---
General Adult HPI - General Chief complaint: Weakness Stated complaint: Bradycardia Time Seen by Provider: 04/14/20 23:45 Source: EMS Mode of arrival: EMS Limitations: no limitations - History of Present Illness Initial comments: this is a 79-year-old woman who is here as a transfer from [facility]. The patient had gone there with complaints of having worsening lightheadedness and palpitations as well as some weakness and fatigue. The patient had been in the hospital and had medications changed she believes for atrial fibrillation. The patient had been given Flecainide to take. When the patient hadgone to the other hospital she was found to have bradycardia with rate in the 30s and accompanying hypotension. the patient had been given atropine 0.5 mg, 2 doses. Her magnesium was at 1.4 so she was given 2 g of magnesium. The patient's heart rate did improve to the 50s and she was transferred here. On arrival, the patient states that she is feeling better than she was are not back at her baseline. Patient denies chest pain, dyspnea, diaphoresis, nausea or vomiting. Onset/Timin -: days(s) Location: head Severity scale (1-10): 0 Consistency: now resolved Improves with: none Worsens with: none Associated Symptoms: weakness Treatments Prior to Arrival: other - Related Data Home Medications Medication Instructions Recorded Confirmed Ascorbic Acid [Vitamin C] 1,000 mg PO DAILY 01/19/17 04/08/20 Aspirin EC [Ecotrin Low Dose] 81 mg PO DAILY 01/19/17 04/08/20 Cholecalciferol (Vitamin D3) 4,000 unit PO DAILY 01/19/17 04/08/20 [Vitamin D3] Multivitamins, Thera [Multivitamin 1 tab PO DAILY 01/19/17 04/08/20 (formulary)] SUMAtriptan succinate [Imitrex] 50 mg PO DIRECTED PRN 01/19/17 04/08/20 Albuterol Inhaler [Ventolin Hfa 2 puff INHALATION DIRECTED PRN 04/05/20 04/08/20 Inhaler] Atorvastatin [Lipitor] 20 mg PO PC-SUPPER 04/05/20 04/08/20 Metoprolol Tartrate [Lopressor] 25 mg PO TID 04/05/20 04/08/20 Verapamil Sr [Isoptin Sr] 180 mg PO QAM 04/05/20 04/08/20 traMADol HCL [Ultram] 50 mg PO Q6HR PRN 04/05/20 04/08/20 Previous Rx's Medication Instructions Recorded Flecainide [Tambocor] 50 mg PO Q12HR #180 tablet 04/08/20 Allergies Allergy/AdvReac Type Severity Reaction Status Date / Time latex AdvReac Rash/Hives Verified 04/14/20 23:49 Review of Systems ROS Statement: Those systems with pertinent positive or pertinent negative responses have been documented in the HPI. ROS Other: All systems not noted in ROS Statement are negative. Constitutional: Reports: weakness. Denies: fever, chills Eyes: Denies: eye pain, vision change Respiratory: Denies: cough, dyspnea Cardiovascular: Reports: palpitations. Denies: chest pain, orthopnea, edema Gastrointestinal: Denies: abdominal pain, nausea, vomiting Genitourinary: Denies: dysuria, hematuria Musculoskeletal: Denies: back pain Skin: Denies: rash Neurological: Reports: confusion, vertigo. Denies: headache, weakness, numbness, paresthesias Past Medical History Past Medical History: Cancer, Hyperlipidemia, Respiratory Disorder, Skin Disorder Additional Past Medical History / Comment(s): See Dr Cardoso H&P, migraines, pulmonary fibrosis, polymyalgia, hx eczema, hx breast cancer dx x 2, aortic aneurysm, urinary leakage, rt inguinal hernia History of Any Multi-Drug Resistant Organisms: None Reported Past Surgical History: Back Surgery, Bladder Surgery, Breast Surgery, Chol ecystectomy, Heart Catheterization, Hernia Repair, Hysterectomy Additional Past Surgical History / Comment(s): right breast lumpectomy with removal of lymph nodes, left mastectomy/removal of lymph nodes- with reconstruction(flap), bladder suspension x 2, norma cataracts, rectocele/cystocele with hysterectomy Past Anesthesia/Blood Transfusion Reactions: Previous Problems w/ Anesthesia Additional Past Anesthesia/Blood Transfusion Reaction / Comment(s): "hard to come out of anesthesia" Past Psychological History: Anxiety Smoking Status: Never smoker Past Alcohol Use History: None Reported Past Drug Use History: None Reported - Past Family History Brother(s) Family Medical History: Cancer Additional Family Medical History / Comment(s): at 18 from [place] Sister(s) Family Medical History: Cancer Son(s) Family Medical History: Deep Vein Thrombosis (DVT), Pulmonary Embolus General Exam Limitations: no limitations General appearance: alert, in no apparent distress Head exam: Present: atraumatic, normocephalic Eye exam: Present: normal appearance. Absent: scleral icterus, conjunctival injection ENT exam: Present: normal oropharynx Neck exam: Present: normal inspection Respiratory exam: Present: normal lung sounds bilaterally. Absent: respiratory distress, wheezes, rales, rhonchi, stridor Cardiovascular Exam: Present: normal rhythm, bradycardia (rate approximately 56 bpm), normal heart sounds. Absent: systolic murmur, diastolic murmur, rubs, gallop GI/Abdominal exam: Present: soft. Absent: distended, tenderness, guarding, rebound, rigid, mass Extremities exam: Present: normal inspection, normal capillary refill. Absent: pedal edema, calf tenderness Back exam: Present: normal inspection. Absent: CVA tenderness (R), CVA tenderness (L) Neurological exam: Present: alert, oriented X3, CN II-XII intact Skin exam: Present: warm, dry, intact, normal color. Absent: rash Course Vital Signs 04/14/20 23:39 Temperature 98.9 F Pulse Rate 53 L Respiratory 18 Rate Blood Pressure 144/77 O2 Sat by Pulse 97 Oximetry EKG Findings - EKG Results: EKG: interpreted by ERMD, sinus rhythm, normal axis EKG shows: bradycardia (ate 58 bpm) - [place], Pacemaker, Normal: Myocardial infarction: anterior WV (old age or indeterminate) (possible old anterior infarct.) Disposition Clinical Impression: Symptomatic bradycardia, Hypomagnesemia Disposition: ADMITTED IP TO THIS HOSP Condition: Fair Is patient prescribed a controlled substance at d/c from ED?: No Referrals: Brenda Lawrence DO [Primary Care Provider] - 1-2 days
[2020-04-15] MEDS ORDERED: NALOXONE 0.4 MG/ML 1 ML VIAL IV PRN (00:58)
[2020-04-15] MEDS ORDERED: SUMAtriptan succinate 50 MG TAB PO PRN (09:00)
[2020-04-15] MEDS ORDERED: ALBUTEROL NEBULIZED 2.5 MG/3 ML INHALATION PRN (09:00)
[2020-04-15] MEDS: MAGNESIUM OXIDE 400 MG TAB PO SCH (10:38)
[2020-04-15] MEDS: VERAPAMIL SR 180 MG TABLET.ER PO SCH (10:38)
[2020-04-15] MEDS: ASCORBIC ACID 500 MG TAB PO SCH (10:38)
[2020-04-15] MEDS: ASPIRIN 81 MG PO SCH (10:38)
[2020-04-15] MEDS: MULTIVITAMINS, THERA 1 EACH TAB PO SCH (10:38)
--- NOTE | 2020-04-15 10:47 | P.CRDCN ---
<Eun Joseph - Last Filed: 04/15/20 10:12> History of Present Illness History of present illness: HISTORY OF PRESENTING ILLNESS This is a pleasant 79-year-old and female past medical history significant for SVT, hypertension, dyslipidemia, breast cancer and pulmonary fibrosis. She follows in the office with Dr. Martínez. We have been asked to see in consultation for she recently underwent an EP study revealing bursts of multifocal atrial tachycardia. Since being discharged home on April 08 she states she has been feeling somewhat nauseated and then yesterday she started feeling lightheaded and diaphoretic. She initially presented to [facility] on arrival to the emergency department at [facility] she was given 2 doses of atropine for heart rate in the 30s. She was also given 2 g of m agnesium. Her heart rates did improve to the 50s and she was transferred here for further evaluation and cardiology. She is seen and examined sitting up in the chair in no acute distress. At the time her heart rate is in the 50s and she states she feels normal. She has no dizziness at this time. She is not clammy or diaphoretic. She has no chest pain or shortness of breath. EKG on arrival here reveals sinus bradycardia with a heart rate of 58. Current daily cardiac medications include flecainide 50 mg twice a day, Lopressor 25 mg 3 times a day, verapamil 180 mg in the morning, atorvastatin 20 mg with dinner and aspirin 81 mg daily. She underwent cardiac catheterization in 2010 revealing no significant coronary artery disease. Most recent echocardiogram obtained in 2019 revealed preserved LV systolic function with ejection fraction 55%, mild AR, mild MR and mild TR noted. REVIEW OF SYSTEMS At the time of my exam: CONSTITUTIONAL: Denies fever or chills. CARDIOVASCULAR: Denies chest pain, shortness of breath, orthopnea, PND or palpitations. RESPIRATORY: Denies cough. GASTROINTESTINAL: Denies abdominal pain, diarrhea, constipation, nausea or vomiting. MUSCULOSKELETAL: Denies myalgias. NEUROLOGIC: Denies numbness, tingling or weakness. ENDOCRINE: Denies fatigue, weight change, polydipsia or polyurina. GENITOURINARY: Denies burning, hematuria or urgency with micturation. HEMATOLOGIC: Denies history of anemia or bleeding. PHYSICAL EXAMINATION Blood pressure 111/63 heart rate 59 afebrile and maintaining oxygen saturation on room air. CONSTITUTIONAL: No apparent distress. HEENT: Head is normocephalic. Pupils are equal, round. Sclerae anicteric. Mucous membranes of the mouth are moist. No JVD. No carotid bruit. CHEST EXAMINATION: Lungs are clear to auscultation. No chest wall tenderness is noted on palpation or with deep breathing. HEART EXAMINATION: Regular rate and rhythm. S1, S2 heard. No murmurs, gallops or rub. ABDOMEN: Soft, nontender. Positive bowel sounds. EXTREMITIES: 2+ peripheral pulses, no lower extremity edema and no calf tenderness. NEUROLOGIC EXAMINATION: Patient is awake, alert and oriented x3. ASSESSMENT Symptomatic bradycardia s/p EP study with MAT induced s/p burst ablation Hypertension Dyslipidemia PLAN Continue verapamil and flecanide as previously ordered. Hold lopressor. Continue to monitor on telemetry for significant bradycardia. Further recommendations to follow based on clinical course. Thank you kindly for this consultation. Nurse Practitioner note has been reviewed, I agree with a documented findings and plan of care. Patient was seen and examined. Past Medical History Past Medical History: Cancer, Hyperlipidemia, Hypertension, Respiratory Disorder, Skin Disorder Additional Past Medical History / Comment(s): See Dr Cardoso H&P, migraines, pulmonary fibrosis, polymyalgia, hx eczema, hx breast cancer dx x 2, aortic aneurysm, urinary leakage, rt inguinal hernia History of Any Multi-Drug Resistant Organisms: None Reported Past Surgical History: Back Surgery, Bladder Surgery, Breast Surgery, Cholecystectomy, Heart Catheterization, Hernia Repair, Hysterectomy Additional Past Surgical History / Comment(s): right breast lumpectomy with removal of lymph nodes, left mastectomy/removal of lymph nodes- with reconstruction(flap), bladder suspension x 2, norma cataracts, rectocele/cystocele with hysterectomy Past Anesthesia/Blood Transfusion Reactions: Previous Problems w/ Anesthesia Additional Past Anesthesia/Blood Transfusion Reaction / Comment(s): "hard to come out of anesthesia" Past Psychological History: Anxiety Smoking Status: Never smoker Past Alcohol Use History: None Reported Past Drug Use History: None Reported - Past Family History Brother(s) Family Medical History: Cancer Additional Family Medical History / Comment(s): at 18 from [place] Sister(s) Family Medical History: Cancer Son(s) Family Medical History: Deep Vein Thrombosis (DVT), Pulmonary Embolus Medications and Allergies Home Medications Medication Instructions Recorded Confirmed Type Ascorbic Acid [Vitamin C] 1,000 mg PO DAILY 01/19/17 04/15/20 History Aspirin EC [Ecotrin Low Dose] 81 mg PO DAILY 01/19/17 04/15/20 History Cholecalciferol (Vitamin D3) 4,000 unit PO DAILY 01/19/17 04/15/20 History [Vitamin D3] Multivitamins, Thera [Multivitamin 1 tab PO DAILY 01/19/17 04/15/20 History (formulary)] SUMAtriptan succinate [Imitrex] 50 mg PO DIRECTED PRN 01/19/17 04/15/20 History Albuterol Inhaler [Ventolin Hfa 2 puff INHALATION RT-Q6H PRN 04/05/20 04/15/20 History Inhaler] Atorvastatin [Lipitor] 20 mg PO PC-SUPPER 04/05/20 04/15/20 History Verapamil Sr [Isoptin Sr] 180 mg PO QAM 04/05/20 04/15/20 History traMADol HCL [Ultram] 50 mg PO Q6HR PRN 04/05/20 04/15/20 History Flecainide [Tambocor] 50 mg PO Q12HR #180 tablet 04/08/20 04/15/20 Rx Allergies Allergy/AdvReac Type Severity Reaction Status Date / Time latex AdvReac Rash/Hives Verified 04/14/20 23:49 Physical Exam Vitals: Vital Signs Temp Pulse Pulse Resp BP BP Pulse Ox 04/15/20 09:30 97.9 F 59 L 18 111/63 94 L 04/15/20 07:58 98 F 72 18 151/75 98 04/15/20 03:33 98.8 F 61 16 117/84 99 04/15/20 02:04 61 16 103/61 100 04/14/20 23:39 98.9 F 53 L 18 144/77 97 Intake and Output 04/14/20 04/15/20 04/15/20 22:59 06:59 14:59 Intake Total 240 Balance 240 Intake: Oral 240 Other: Voiding Method Toilet Weight 73.482 kg Results Cardiac Enzymes 04/15/20 04/15/20 Range/Units 00:44 02:28 Troponin I <0.012 <0.012 (0.000-0.034) ng/mL Current Medications Generic Name Dose Route Start Last Admin Trade Name Freq PRN Reason Stop Dose Admin Albuterol Sulfate 2.5 mg 04/15/20 09:00 Albuterol Nebulized 2.5 Mg/3 Ml INHALATION DIRECTED PRN sob Ascorbic Acid 1,000 mg 04/15/20 09:00 Ascorbic Acid 500 Mg Tab PO DAILY [facility] Aspirin 81 mg 04/15/20 09:00 Aspirin 81 Mg PO DAILY [facility] Atorvastatin Calcium 20 mg 04/15/20 18:30 Atorvastatin 20 Mg Tab PO PC-SUPPER [facility] Flecainide Acetate 50 mg 04/15/20 09:00 Flecainide 50 Mg Tab PO Q12HR [facility] Magnesium Oxide 400 mg 04/15/20 09:00 Magnesium Oxide 400 Mg Tab PO DAILY [facility] Multivitamins 1 each 04/15/20 09:00 Multivitamins, Thera 1 Each Tab PO DAILY [facility] Naloxone HCl 0.2 mg 04/15/20 00:58 Naloxone 0.4 Mg/Ml 1 Ml Vial IV Q2M PRN Opioid Reversal Nitroglycerin 0.4 mg 04/15/20 00:11 Nitroglycerin Sl Tabs 0.4 Mg Tab SUBLINGUAL Q5M PRN Chest Pain Sumatriptan Succinate 50 mg 04/15/20 09:00 Sumatriptan Succinate 50 Mg Tab PO DIRECTED PRN Migraine Headache Tramadol HCl 50 mg 04/15/20 00:14 Tramadol 50 Mg Tab PO Q6HR PRN Pain Verapamil HCl 180 mg 04/15/20 09:15 Verapamil Sr 180 Mg Tablet.Er PO QAM [facility] Intake and Output 04/14/20 04/15/20 04/15/20 22:59 06:59 14:59 Intake Total 240 Balance 240 Intake: Oral 240 Other: Voiding Method Toilet Weight 73.482 kg <Antoni Marin - Last Filed: 04/16/20 12:08> Physical Exam Vitals: Vital Signs Temp Pulse Pulse Resp BP Pulse Ox 04/16/20 10:03 134/74 04/16/20 08:23 78 04/16/20 07:56 97.8 F 64 14 160/72 97 04/16/20 04:40 98 F 78 17 155/73 95 04/15/20 20:10 98.1 F 54 L 18 144/73 96 04/15/20 15:36 18 94 L 04/15/20 15:00 97.9 F 59 L 18 126/72 90 L Intake and Output 04/15/20 04/16/20 04/16/20 22:59 06:59 14:59 Intake Total 480 Balance 480 Intake: Oral 480 Other: Voiding Method Toilet Toilet # Voids 4 4 # Bowel Movements 1 Results 04/16/20 07:57 04/16/20 07:57 Cardiac Enzymes 04/16/20 Range/Units 07:57 AST 62 H (14-36) U/L Lipids 04/16/20 Range/Units 07:57 Triglycerides 98 (<150) mg/dL Cholesterol 121 (<200) mg/dL HDL Cholesterol 37 L (40-60) mg/dL CBC 04/16/20 Range/Units 07:57 WBC 7.8 (3.8-10.6) k/uL RBC 3.40 L (3.80-5.40) m/uL Hgb 11.5 (11.4-16.0) gm/dL Hct 33.9 L (34.0-46.0) % Plt Count 182 (150-450) k/uL Comprehensive Metabolic Panel 04/16/20 Range/Units 07:57 Sodium 137 (137-145) mmol/L Potassium 3.8 (3.5-5.1) mmol/L Chloride 101 (98-107) mmol/L Carbon Dioxide 31 H (22-30) mmol/L BUN 9 (7-17) mg/dL Creatinine 0.58 (0.52-1.04) mg/dL Glucose 84 (74-99) mg/dL Calcium 8.5 (8.4-10.2) mg/dL AST 62 H (14-36) U/L ALT 150 H (4-34) U/L Alkaline Phosphatase 122 (38-126) U/L Total Protein 6.1 L (6.3-8.2) g/dL Albumin 3.7 (3.5-5.0) g/dL Current Medications Generic Name Dose Route Start Last Admin Trade Name Freq PRN Reason Stop Dose Admin Albuterol Sulfate 2.5 mg 04/15/20 09:00 Albuterol Nebulized 2.5 Mg/3 Ml INHALATION DIRECTED PRN sob Ascorbic Acid 1,000 mg 04/15/20 09:00 04/16/20 09:01 Ascorbic Acid 500 Mg Tab PO 1,000 mg DAILY JOSE Administration Aspirin 81 mg 04/15/20 09:00 04/16/20 09:01 Aspirin 81 Mg PO 81 mg DAILY JOSE Administration Atorvastatin Calcium 20 mg 04/15/20 18:30 04/15/20 18:38 Atorvastatin 20 Mg Tab PO 20 mg PC-SUPPER JOSE Administration Flecainide Acetate 50 mg 04/15/20 09:00 04/16/20 09:01 Flecainide 50 Mg Tab PO 50 mg Q12HR JOSE Administration Magnesium Oxide 400 mg 04/15/20 09:00 04/16/20 09:01 Magnesium Oxide 400 Mg Tab PO 400 mg DAILY JOSE Administration Multivitamins 1 each 04/15/20 09:00 04/16/20 09:01 Multivitamins, Thera 1 Each Tab PO 1 each DAILY JOSE Administration Naloxone HCl 0.2 mg 04/15/20 00:58 Naloxone 0.4 Mg/Ml 1 Ml Vial IV Q2M PRN Opioid Reversal Nitroglycerin 0.4 mg 04/15/20 00:11 Nitroglycerin Sl Tabs 0.4 Mg Tab SUBLINGUAL Q5M PRN Chest Pain Sumatriptan Succinate 50 mg 04/15/20 09:00 Sumatriptan Succinate 50 Mg Tab PO DIRECTED PRN Migraine Headache Tramadol HCl 50 mg 04/15/20 00:14 Tramadol 50 Mg Tab PO Q6HR PRN Pain Verapamil HCl 180 mg 04/15/20 09:15 04/16/20 09:01 Verapamil Sr 180 Mg Tablet.Er PO 180 mg QAM JOSE Administration Intake and Output 04/15/20 04/16/20 04/16/20 22:59 06:59 14:59 Intake Total 480 Balance 480 Intake: Oral 480 Other: Voiding Method Toilet Toilet # Voids 4 4 # Bowel Movements 1 04/16/20 07:57 04/16/20 07:57
[2020-04-15] MEDS: FLECAINIDE 50 MG TAB PO SCH ×2 (12:17→20:54)
[2020-04-15] MEDS ORDERED: ATORVASTATIN 20 MG TAB PO SCH (18:30)
--- NOTE | 2020-04-15 20:02 | P.HPIM ---
History of Present Illness H&P Date: 04/15/20 Chief Complaint: Weak and tired History of presenting complaint: This is a 79-year-old patient Dr. Brenda Lawrence. Chronic stable medical conditions include hyperlipidemia, hypertension, pulmonary fibrosis, polymyalgia, history of breast cancer, articular aneurysm, urinary incontinence. She follows with Dr. Antoni Marin from electrophysiology. Just over a week ago patient was having increased heart rate under heart monitor and she is brought in for DC cardioversion. Patient was discharged on beta ravi verapamil. Patient started feeling weak diet dizzy lightheaded. Went down to [facility]. Patient's found to be bradycardic. Transferred up here to [facility] on.. Toprol was discontinued.. No chest pain or pressure. Patient to have a cardiac catheterization in 2010 that was reportedly unremarkable. Review of systems: GEN.: Tired EYES: None HEENT: None NECK: None RESPIRATORY: None CARDIOVASCULAR: As above GASTROINTESTINAL: None GENITOURINARY: None MUSCULOSKELETAL: None LYMPHATICS: None HEMATOLOGICAL: None PSYCHIATRY: None NEUROLOGICAL: None Past medical history to include: Hypertension, hyperlipidemia, pulmonary fibrosis, polymyalgia, breast cancer, aortic aneurysm, urinary incontinence, Social history: Does not smoke or drink alcohol. Is a . Lives alone. Physical examination: VITAL SIGNS: 98.9, 53, 18, 144/77, 97% on 2 L upon presentation GENERAL: BMI 29.6, sitting up in bed, not in distress. EYES: Pupils equal. Conjunctiva normal. HEENT: External appearance of nose and ears normal, oral cavity grossly normal. NECK: JVD not raised; masses not palpable. HEART: First and second heart sounds are normal; no edema. LUNGS: Respiratory rate normal; clear to auscultation. ABDOMEN: Soft, nontender, liver spleen not palpable, no masses palpable. PSYCH: Alert and oriented x3; mood and affect normal. NEUROLOGICAL: Cranial nerves grossly intact; no facial asymmetry, power and sensation grossly intact. LYMPHATICS: No lymph nodes palpable in the axilla and neck INVESTIGATIONS, reviewed in the clinical context: EKG tracing personally reviewed by me-sinus rhythm, 58 Assessment: -Patient presenting feeling weak tired rundown since started on beta ravi and verapamil patient being bradycardic. Beta ravi held -Recent history of multifocal O of tachycardia followed by EP study and post ablation. -Hyperlipidemia -Essential hypertension -Chronic pelvic fibrosis -Polymyalgia -Chronic urinary incontinence Plan: Patient's home medications resumed. Patient's flecainide and verapamil has been continued by currently. Compresses been held. Patient on telemetry. Lovenox for DVT prophylaxis. Care was discussed with the patient question answered. Past Medical History Past Medical History: Cancer, Hyperlipidemia, Hypertension, Respiratory Disorder, Skin Disorder Additional Past Medical History / Comment(s): See Dr Cardoso H&P, migraines, pulmonary fibrosis, polymyalgia, hx eczema, hx breast cancer dx x 2, aortic aneurysm, urinary leakage, rt inguinal hernia History of Any Multi-Drug Resistant Organisms: None Reported Past Surgical History: Back Surgery, Bladder Surgery, Breast Surgery, Cholecystectomy, Heart Catheterization, Hernia Repair, Hysterectomy Additional Past Surgical History / Comment(s): right breast lumpectomy with removal of lymph nodes, left mastectomy/removal of lymph nodes- with reconstruction(flap), bladder suspension x 2, norma cataracts, rectocele/cystocele with hysterectomy Past Anesthesia/Blood Transfusion Reactions: Previous Problems w/ Anesthesia Additional Past Anesthesia/Blood Transfusion Reaction / Comment(s): "hard to come out of anesthesia" Past Psychological History: Anxiety Smoking Status: Never smoker Past Alcohol Use History: None Reported Past Drug Use History: None Reported - Past Family History Brother(s) Family Medical History: Cancer Additional Family Medical History / Comment(s): at 18 from [place] Sister(s) Family Medical History: Cancer Son(s) Family Medical History: Deep Vein Thrombosis (DVT), Pulmonary Embolus Medications and Allergies Home Medications Medication Instructions Recorded Confirmed Type Ascorbic Acid [Vitamin C] 1,000 mg PO DAILY 01/19/17 04/15/20 History Aspirin EC [Ecotrin Low Dose] 81 mg PO DAILY 01/19/17 04/15/20 History Cholecalciferol (Vitamin D3) 4,000 unit PO DAILY 01/19/17 04/15/20 History [Vitamin D3] Multivitamins, Thera [Multivitamin 1 tab PO DAILY 01/19/17 04/15/20 History (formulary)] SUMAtriptan succinate [Imitrex] 50 mg PO DIRECTED PRN 01/19/17 04/15/20 History Albuterol Inhaler [Ventolin Hfa 2 puff INHALATION RT-Q6H PRN 04/05/20 04/15/20 History Inhaler] Atorvastatin [Lipitor] 20 mg PO PC-SUPPER 04/05/20 04/15/20 History Metoprolol Tartrate [Lopressor] 25 mg PO TID 04/05/20 04/15/20 History Verapamil Sr [Isoptin Sr] 180 mg PO QAM 04/05/20 04/15/20 History traMADol HCL [Ultram] 50 mg PO Q6HR PRN 04/05/20 04/15/20 History Flecainide [Tambocor] 50 mg PO Q12HR #180 tablet 04/08/20 04/15/20 Rx Allergies Allergy/AdvReac Type Severity Reaction Status Date / Time latex AdvReac Rash/Hives Verified 04/14/20 23:49 Physical Exam Vitals: Vital Signs Temp Pulse Pulse Resp BP BP Pulse Ox 04/15/20 09:30 97.9 F 59 L 18 111/63 94 L 04/15/20 07:58 98 F 72 18 151/75 98 04/15/20 03:33 98.8 F 61 16 117/84 99 04/15/20 02:04 61 16 103/61 100 04/14/20 23:39 98.9 F 53 L 18 144/77 97 Intake and Output 04/14/20 04/15/20 04/15/20 22:59 06:59 14:59 Intake Total 240 Balance 240 Intake: Oral 240 Other: Voiding Method Toilet Weight 73.482 kg Thrombosis Risk Factor Assmnt - Choose All That Apply Other Risk Factors: Yes Each Risk Factor Represents 2 Points: Age 61-74 years Other congenital or acquired thrombophilia - If yes, enter type in comment: No Thrombosis Risk Factor Assessment Total Risk Factor Score: 2 Thrombosis Risk Factor Assessment Level: Low Risk
[2020-04-16 08:06] VITALS: RESP 14; TEMP 97.8
[2020-04-16 08:23] LABS: Basophils % (A) 1 %; Eosinophils # (A) 0.1 k/uL (0-0.7); Eosinophils % (A) 2 %; HCT 33.9 % (34.0-46.0); HGB 11.5 gm/dL (11.4-16.0); Lymphocytes # (A) 1.2 k/uL (1.0-4.8); Lymphocytes % (A) 15 %; MCH 33.7 pg (25.0-35.0); MCHC 33.8 g/dL (31.0-37.0); MCV 99.8 fL (80.0-100.0); Macrocytosis Slight; Mean Platelet Volume 7.8; Monocytes # (A) 0.4 k/uL (0-1.0); Monocytes % (A) 5 %; Neutrophils # (A) 5.9 k/uL (1.3-7.7); Neutrophils % (A) 76 %; Platelet Count 182 k/uL (150-450); RDW 14.5 % (11.5-15.5); WBC 7.8 k/uL (3.8-10.6)
[2020-04-16 08:25] VITALS: PULSE 78
[2020-04-16 08:34] LABS: ALT 150 U/L (4-34); AST 62 U/L (14-36); African American GFR (CKD) >90 (>60 ml/min/1.73 sqM); Albumin 3.7 g/dL (3.5-5.0); Alkaline Phosphatase 122 U/L (38-126); Anion Gap 5 mmol/L; Blood Urea Nitrogen 9 mg/dL (7-17); Calcium 8.5 mg/dL (8.4-10.2); Carbon Dioxide 31 mmol/L (22-30); Chloride 101 mmol/L (98-107); Cholesterol 121 mg/dL (<200); Glucose 84 mg/dL (74-99); HDL Cholesterol 37 mg/dL (40-60); LDL Cholesterol,Calculated 64 mg/dL (0-99); Magnesium 1.7 mg/dL (1.6-2.3); Non-African American GFR(CKD) 88 (>60 ml/min/1.73 sqM); Potassium 3.8 mmol/L (3.5-5.1); Sodium 137 mmol/L (137-145); Total Bilirubin 1.2 mg/dL (0.2-1.3); Total Protein 6.1 g/dL (6.3-8.2); Triglycerides 98 mg/dL (<150)
[2020-04-16] MEDS ORDERED: ASPIRIN 325 MG TAB PO SCH (09:00)
[2020-04-16] MEDS: MULTIVITAMINS, THERA 1 EACH TAB PO SCH (09:01)
[2020-04-16] MEDS: ASCORBIC ACID 500 MG TAB PO SCH (09:01)
[2020-04-16] MEDS: MAGNESIUM OXIDE 400 MG TAB PO SCH (09:01)
[2020-04-16] MEDS: VERAPAMIL SR 180 MG TABLET.ER PO SCH (09:01)
[2020-04-16] MEDS: FLECAINIDE 50 MG TAB PO SCH (09:01)
[2020-04-16] MEDS: ASPIRIN 81 MG PO SCH (09:01)
[2020-04-16 10:04] VITALS: BP 134/74
--- NOTE | 2020-04-16 12:08 | P.DS ---
Providers Date of admission: 04/16/20 09:21 Attending physician: Chet Myrick Consults: 04/15/20 00:11 Consult Physician Routine Consulting Provider: Antoni Marin Consult Reason/Comments: symptomatic bradycardia Do you want consulting provider notified?: Yes Primary care physician: Brenda Lawrence [facility] Course: Chel is resting comfortably in bed. No significant bradycardia overnight No symptoms She is feeling well She underwent a diagnostic EP study which revealed multifocal atrial tachycardia Yesterday we stopped her metoprolol. We continued flecainide and verapamil for suppression of MAT At this point she is not a candidate for ablation On examination heart sounds are normal no murmurs no gallops Breath sounds are clear no rhonchi no crackles Abdomen soft benign except is warm no edema Heart rate 7 the 60s and 70s, afebrile 97.8F, blood pressure 134/74 mmHg Impression Mild bradycardia on metoprolol verapamil and flecainide Improvement after metoprolol was discontinued Plan Continue flecainide and verapamil Discontinue metoprolol Discharge home and follow-up with Dr. Mckeon in a week Patient Condition at Discharge: Fair Plan - Discharge Summary Discharge Rx Participant: No New Discharge Prescriptions: Continue Aspirin EC [Ecotrin Low Dose] 81 mg PO DAILY Ascorbic Acid [Vitamin C] 1,000 mg PO DAILY SUMAtriptan succinate [Imitrex] 50 mg PO DIRECTED PRN PRN Reason: Migraine Headache Multivitamins, Thera [Multivitamin (formulary)] 1 tab PO DAILY Cholecalciferol (Vitamin D3) [Vitamin D3] 4,000 unit PO DAILY Albuterol Inhaler [Ventolin Hfa Inhaler] 2 puff INHALATION RT-Q6H PRN PRN Reason: Shortness Of Breath traMADol HCL [Ultram] 50 mg PO Q6HR PRN PRN Reason: Pain Atorvastatin [Lipitor] 20 mg PO PC-SUPPER Verapamil Sr [Isoptin Sr] 180 mg PO QAM Flecainide [Tambocor] 50 mg PO Q12HR #180 tablet Discontinued Metoprolol Tartrate [Lopressor] 25 mg PO TID Discharge Medication List Ascorbic Acid [Vitamin C] 1,000 mg PO DAILY 01/19/17 [History] Aspirin EC [Ecotrin Low Dose] 81 mg PO DAILY 01/19/17 [History] Cholecalciferol (Vitamin D3) [Vitamin D3] 4,000 unit PO DAILY 01/19/17 [History] Multivitamins, Thera [Multivitamin (formulary)] 1 tab PO DAILY 01/19/17 [History] SUMAtriptan succinate [Imitrex] 50 mg PO DIRECTED PRN 01/19/17 [History] Albuterol Inhaler [Ventolin Hfa Inhaler] 2 puff INHALATION RT-Q6H PRN 04/05/20 [History] Atorvastatin [Lipitor] 20 mg PO PC-SUPPER 04/05/20 [History] Verapamil Sr [Isoptin Sr] 180 mg PO QAM 04/05/20 [History] traMADol HCL [Ultram] 50 mg PO Q6HR PRN 04/05/20 [History] Flecainide [Tambocor] 50 mg PO Q12HR #180 tablet 04/08/20 [Rx] Follow up Appointment(s)/Referral(s): cardiology, [Other] - 1 Week Brenda Lawrence DO [Primary Care Provider] - 1-2 days
--- NOTE | 2020-04-16 20:25 | P.DS ---
Providers Date of admission: 04/16/20 09:21 Expected date of discharge: 04/16/20 Attending physician: Chet Myrick Consults: 04/15/20 00:11 Consult Physician Routine Consulting Provider: Antoni Marin Consult Reason/Comments: symptomatic bradycardia Do you want consulting provider notified?: Yes Primary care physician: Brenda Lawrence [facility] Course: Chief Complaint: Weak and tired History of presenting complaint: This is a 79-year-old patient Dr. Brenda Lawrence. Chronic stable medical conditions include hyperlipidemia, hypertension, pulmonary fibrosis, polymyalgia, history of breast cancer, articular aneurysm, urinary incontinence. She follows with Dr. Antoni Marin from electrophysiology. Just over a week ago patient was having increased heart rate under heart monitor and she is brought in for EP study. Found to have burst of multifocal atrial tachycardia. Patient was discharged on beta ravi verapamil. Patient started feeling weak diet dizzy lightheaded. Went down to [facility]. Patient's found to be bradycardic. Transferred up here to [facility] .. Toprol was discontinued.. No chest pain or pressure. Patient to have a cardiac catheterization in 2010 that was reportedly unremarkable. Today-continues to feel well. No new issues. Discussed with the patient. Cleared by cardiology. Patient to remain off beta ravi Consultation: Dr. Antoni Marin from cardiology Physical examination: VITAL SIGNS: He 7.8, 64, 16, 1:30/74, 95% on room air GENERAL: Laying in bed, comfortable EYES: Pupils equal. Conjunctiva normal. NECK: JVD not raised; masses not palpable. HEART: First and second heart sounds are normal; no edema. LUNGS: Respiratory rate normal; clear to auscultation. ABDOMEN: Soft, nontender, liver spleen not palpable, no masses palpable. PSYCH: Alert and oriented x3; mood and affect normal. INVESTIGATIONS, reviewed in the clinical context: EKG tracing personally reviewed by me-sinus rhythm, 58 Assessment: -Patient presenting feeling weak tired rundown since started on beta ravi and verapamil patient being-symptomatic bradycardia -Recent diagnosis of bursts ofmultifocal atrial tachycardia-found on EP study. -Hyperlipidemia -Essential hypertension -Chronic pelvic fibrosis -Polymyalgia -Chronic urinary incontinence Disposition: Home Patient Condition at Discharge: Stable Plan - Discharge Summary Discharge Rx Participant: No New Discharge Prescriptions: Continue Aspirin EC [Ecotrin Low Dose] 81 mg PO DAILY Ascorbic Acid [Vitamin C] 1,000 mg PO DAILY SUMAtriptan succinate [Imitrex] 50 mg PO DIRECTED PRN PRN Reason: Migraine Headache Multivitamins, Thera [Multivitamin (formulary)] 1 tab PO DAILY Cholecalciferol (Vitamin D3) [Vitamin D3] 4,000 unit PO DAILY Albuterol Inhaler [Ventolin Hfa Inhaler] 2 puff INHALATION RT-Q6H PRN PRN Reason: Shortness Of Breath traMADol HCL [Ultram] 50 mg PO Q6HR PRN PRN Reason: Pain Atorvastatin [Lipitor] 20 mg PO PC-SUPPER Verapamil Sr [Isoptin Sr] 180 mg PO QAM Flecainide [Tambocor] 50 mg PO Q12HR #180 tablet Discontinued Metoprolol Tartrate [Lopressor] 25 mg PO TID Discharge Medication List Ascorbic Acid [Vitamin C] 1,000 mg PO DAILY 01/19/17 [History] Aspirin EC [Ecotrin Low Dose] 81 mg PO DAILY 01/19/17 [History] Cholecalciferol (Vitamin D3) [Vitamin D3] 4,000 unit PO DAILY 01/19/17 [History] Multivitamins, Thera [Multivitamin (formulary)] 1 tab PO DAILY 01/19/17 [History] SUMAtriptan succinate [Imitrex] 50 mg PO DIRECTED PRN 01/19/17 [History] Albuterol Inhaler [Ventolin Hfa Inhaler] 2 puff INHALATION RT-Q6H PRN 04/05/20 [History] Atorvastatin [Lipitor] 20 mg PO PC-SUPPER 04/05/20 [History] Verapamil Sr [Isoptin Sr] 180 mg PO QAM 04/05/20 [History] traMADol HCL [Ultram] 50 mg PO Q6HR PRN 04/05/20 [History] Flecainide [Tambocor] 50 mg PO Q12HR #180 tablet 04/08/20 [Rx] Follow up Appointment(s)/Referral(s): Carmella Mckeon MD [STAFF PHYSICIAN] - 04/23/20 9:15 am Brenda Lawrence DO [Primary Care Provider] - 1-2 days Patient Instructions/Handouts: Bradycardia (GEN) Discharge Disposition: HOME SELF-CARE
== END 2020-04-16 14:09 | disposition home or self-care (01) ==
LOC: EC 23:36 → 3NCARDOBS 04-15 00:14 → INTOOBSV 04-16 09:21 → OBSVTOIN 04-16 09:21 → UNDODISIN 04-16 14:09
PROVIDERS: ADMIT Hospitalist; ATTEND Hospitalist
DX: R00.1 Bradycardia, unspecified (principal); I47.1 Supraventricular tachycardia; E83.42 Hypomagnesemia; E78.5 Hyperlipidemia, unspecified; I10 Essential (primary) hypertension; J84.10 Pulmonary fibrosis, unspecified; M35.3 Polymyalgia rheumatica; R32 Unspecified urinary incontinence; L30.9 Dermatitis, unspecified; G43.909 Migraine, unspecified, not intractable, without status migrainosus; I71.9 Aortic aneurysm of unspecified site, without rupture; F41.9 Anxiety disorder, unspecified; R94.31 Abnormal electrocardiogram [ECG] [EKG]; Z86.79 Personal history of other diseases of the circulatory system; Z79.82 Long term (current) use of aspirin; Z79.899 Other long term (current) drug therapy; Z91.040 Latex allergy status; Z85.3 Personal history of malignant neoplasm of breast; Z87.19 Personal history of other diseases of the digestive system; Z98.890 Other specified postprocedural states; Z90.49 Acquired absence of other specified parts of digestive tract; Z90.710 Acquired absence of both cervix and uterus; Z90.12 Acquired absence of left breast and nipple; Z98.41 Cataract extraction status, right eye; Z98.42 Cataract extraction status, left eye; Z91.89 Other specified personal risk factors, not elsewhere classified; Z80.9 Family history of malignant neoplasm, unspecified; Z82.49 Family history of ischemic heart disease and other diseases of the circulatory system
CPT/HCPCS: 93005 ×2; 99285; 80061; 80053; 84443; 83735; 84484; 85025; G0378 ×2

== ENCOUNTER → 2021-12-22 | Outpatient (CLI) | payer MEDICARE ==
[2021-12-22 13:59] VITALS: BP 147/77; PULSE 76; RESP 16
--- NOTE | 2021-12-22 14:42 | P.PAINPG ---
PQRS Measure Charge Sheet Comment: HISTORY OF PRESENT ILLNESS: 81 yr old female as a referral from Dr. Saunders presents today w severe and chronic LBP x 2 mo secondary to disc bulges, DDD, neuroforaminal stenoses, spinal stenosis and facet arthropathy for evaluation. She states her pain level is currently at 2/10 in intensity, but escalates as high as 10/10 by evening or with standing/walking for periods of 15 min or more. Pain is alleviated with medications (Tramadol, Tylenol Arthritis), topicals, ice, heat, home stretching regimen, PT completed in November 2021 x 4 week integrated with massage, repositioning and rest. PMH: Breat CA, Hyperlipidemia, HTN, Respiratory Disorder, Eczema, Anxiety PSH: Back Surgery, Bladder Suspension x 2, R Breast Lumpectomy, L Breast Masectomy, Cholecystectomy, Heart Catheterization, R Inguinal Hernia Repair, Hysterectomy, BL Cataract Resection, Rectocoele/ Cysteocoele w Hysterectomy SH: Negative x 3 FH: Brother- at age 18 due to CA. Sister- CA. Sons- DVT/ PE. All: Latex Meds: See list REVIEW OF ORGAN SYSTEMS: CONSTITUTIONAL: No fevers or chills. No recent weight loss. NEUROLOGICAL: + numbness and tingling along the distal extremities. No seizure disorders or headaches. MUSCULOSKELETAL: + pain PSYCHIATRIC: Denies current depression or suicidal thoughts. Physical Examinations : Constitutional : Cooperative , not in acute distress . Neurologic : Cranial nerve II to XII intact. No focal neurological deficits. Psychiatric : alert & oriented x 3. Matching mood & appropriate affect. Judgment & insight intact. Musculoskeletal : Cervical Spine Motor strength in the deltoid and biceps: Normal right side. Normal Left side Motor strength biceps and the wrist extensors: Normal right side . Normal left side Motor strength in the triceps muscle: Normal right side. Normal left side Deep tendon reflexes: Normal at the biceps. Normal at Brachioradialis. Normal at triceps Vertebral body tenderness to deep palpation over Cervical facet loading test: positive bilaterally Spurling test: positive bilaterally Neck distraction test: positive bilaterally Bogdan sign: positive bilaterally Lumbar spine Motor strength lower extremities ,thigh and legs 5/5 Right side , 5/5 Left side Deep tendon reflexes : Normal Knee Jerk. Normal Ankle Jerk Vertebral body tenderness over L4, L5 Lumbar facet Loading Test: positive Right / positive Left Range of motion of the lumbar spine Flexion 30 degrees, extension 10 degrees Straight Leg Raise test: Left/ Right positive at 30 degree Camden test: positive right / positive left. Severe tenderness over the Sacroiliac joint on the Right / Left sides Gaenslen test: positive bilaterally Seated flexion test: positive bilaterally. Sacral spine : Severe tenderness over the Sacroiliac joint: right side / left side Range of motion: Flexion of the lumbar spine <60 degrees Range of motion: Extension of the lumbar spine <20 degrees Gaenslen's Test positive Delbert's Test positive Camden test: positive right side / left side Thigh Thrust Test Sacral Thrust Test Imaging: MRI without contrast of lumbar spine form 12/19/21 reviewed Assessment/ Plan : Lumbar stenosis, Lumbar DDD Recommendation of LESI L4-L5. May need a series of injections, up to 3 within a 6 mo period, for optimal pain relief. Risks, benefits of procedure discussed and patient verbalized understanding. Denies aspirin or anti- coagulant use or medical history of diabetes. Protocol for discontinuation/ continuation of medications марина procedure discussed. All questions answered. I have spent greater than 30 minutes on patient care today. Dr Moreno was available by phone for the evaluation of this patient. The time was used to review the medical records including relevant urine studies and Prescription history (MAPs), review of the available imaging, evaluation and examination of the patient, coordination of care with the medical staff and if applicable referring physicians, as well as creation of the medical record PQRS Narrative: Smoking Status Never smoker Home Medications: Ambulatory Orders Ascorbic Acid [Vitamin C] 1,000 mg PO DAILY 01/19/17 Aspirin EC [Ecotrin Low Dose] 81 mg PO DAILY 01/19/17 Cholecalciferol (Vitamin D3) [Vitamin D3] 4,000 unit PO DAILY 01/19/17 Multivitamins, Thera [Multivitamin (formulary)] 1 tab PO DAILY 01/19/17 SUMAtriptan succinate [Imitrex] 50 mg PO DIRECTED PRN 01/19/17 Albuterol Inhaler [Ventolin Hfa Inhaler] 2 puff INHALATION RT-Q6H PRN 04/05/20 Atorvastatin [Lipitor] 20 mg PO PC-SUPPER 04/05/20 Verapamil Sr [Isoptin Sr] 180 mg PO QAM 04/05/20 traMADol HCL [Ultram] 50 mg PO Q6HR PRN 04/05/20 Flecainide [Tambocor] 50 mg PO Q12HR #180 tablet 04/08/20 Controlled Substance Measures - Controlled Substance Measures Is patient prescribed a controlled substance at discharge?: No
== END ==
LOC: PNWHC3 13:09
PROVIDERS: ATTEND Specialist
DX: M51.16 Intervertebral disc disorders with radiculopathy, lumbar region (principal); M48.061 Spinal stenosis, lumbar region without neurogenic claudication; E78.5 Hyperlipidemia, unspecified; I10 Essential (primary) hypertension; F41.9 Anxiety disorder, unspecified; Z91.040 Latex allergy status
CPT/HCPCS: 99211

== ENCOUNTER → 2022-01-19 | Outpatient (CLI) | payer MEDICARE ==
[2022-01-19 11:46] LABS: African American GFR (CKD) >90 (>60 ml/min/1.73 sqM); Blood Urea Nitrogen 12 mg/dL (7-17); Non-African American GFR(CKD) 86 (>60 ml/min/1.73 sqM)
--- NOTE | 2022-01-19 23:24 | CT ---
EXAMINATION TYPE: CT abdomen pelvis w con DATE OF EXAM: 01/19/2022 COMPARISON: 05/16/2019 HISTORY: 81-year-old female R140, Abdominal distention TECHNIQUE: Contiguous axial scanning of the abdomen and pelvis following administration of 100 ml Iso lenora 300 IV contrast. Delayed images through the kidneys and coronal/sagittal reconstructions perform ed. CT DLP: 1040 mGycm Automated exposure control for dose reduction was used. FINDINGS: Postsurgical changes along the anterior aspect of the lower chest. There is a epigastric ventral abdominal wall hernia containing omental fat measuring 4.7 cm wide and 3.9 cm craniocaudal. The abdominal wall defect measures up to 1.7 cm craniocaudal. No associated infl ammatory changes. Heart borderline enlarged without pericardial effusion. Strandy areas of atelectasis in the lower jaimee gs. Small hiatal hernia. No focal liver lesion. Bile duct dilated at 9 mm, acceptable given postcholecystectomy status. There is a 2.5 cm diverticulum of the second portion of the duodenum projecting medially. Portal venous sys tem is patent. Adrenal glands, left kidney, spleen with tiny hilar splenule, and pancreas within normal limits. 1.1 cm cortical cyst medial right kidney. No dilated small bowel, free fluid, or free air. No mesenteric or retroperitoneal lymphadenopathy. Normal appendix. Generalized diverticulosis, greatest along the proximal to mid sigmoid colon. No sig nificant stool burden. Oral contrast has progressed to the rectum. No pericolonic inflammatory change . Moderate atherosclerotic calcifications abdominal aorta and iliac arteries. Possible severe stenosis origin of the celiac axis and SMA. Mild circumferential bladder wall thickening. There is pelvic floor relaxation. Uterus surgically abs ent. Neither ovary clearly seen. Bones: Markedly degenerated dextroconvex scoliosis. Chronic inferior endplate deformity T11. Degenera tive grade 1 anterolisthesis L2-L3. IMPRESSION: 1. SMALL HIATAL HERNIA. 2. OMENTAL FAT-CONTAINING VENTRAL MIDLINE EPIGASTRIC ABDOMINAL WALL HERNIA MEASURING 4.7 X 3.9 CM; SI MILAR TO PRIOR. 3. GENERALIZED COLONIC DIVERTICULOSIS, GREATEST IN THE SIGMOID COLON. NO EVIDENCE FOR ACUTE DIVERTICU LITIS. 4. STATUS POST HYSTERECTOMY. PELVIC FLOOR RELAXATION. 5. MILD CIRCUMFERENTIAL BLADDER WALL THICKENING COULD REFLECT CHRONIC BLADDER WALL HYPERTROPHY OR CYS TITIS. CLINICALLY CORRELATE.
== END | disposition home or self-care (01) ==
LOC: RADCTMAIN 10:20
PROVIDERS: ATTEND Internal Medicine Gastroenterology
DX: R14.0 Abdominal distension (gaseous) (principal)
CPT/HCPCS: 82565; 84520; 74177; 36415; Q9967 ×2

== ENCOUNTER 2022-02-02 11:07 | Day surgery (SDC) | payer MEDICARE ==
[2022-02-02 11:40] VITALS: TEMP 97.6
[2022-02-02] MEDS ORDERED: LIDOCAINE 1% (10MG/ML) FOR IV START INTRADERMA PRN (11:41)
[2022-02-02] MEDS ORDERED: LACTATED RINGERS 1,000 ML IV SCH ×2 (11:41→12:30)
[2022-02-02] MEDS ORDERED: methylPREDNISolone ACETATE 80 MG/ML 1 ML VIAL ONE (12:05)
[2022-02-02] MEDS ORDERED: fentaNYL (PF) 50 MCG/ML 2 ML AMP ONE (12:05)
[2022-02-02] MEDS ORDERED: MIDAZOLAM 2 MG/2 ML VIAL ONE (12:05)
[2022-02-02] MEDS ORDERED: IOPAMIDOL M200 10 ML VIAL ONE (12:05)
--- NOTE | 2022-02-02 12:21 | P.PCN ---
Date of Procedure: 02/02/22 Description of Procedure: Procedure: 1. L4-L5 Epidural steroid injection under fluoroscopic guidance #1 , 2. Lumbar epidurogram PREOPERATIVE DIAGNOSIS: Lumbar degenerative disc disease, and Lumbar radiculopathy. POSTOPERATIVE DIAGNOSIS: Lumbar degenerative disc disease, and Lumbar r adiculopathy. SURGEON: Ziyad Deras ANESTHESIA: Local with 1% lidocaine, and IV sedation : Midazolam 1 mg, and fentanyl 50 g Sedation supervision start time : 1205 sedation Supervision end time: 1217 EBL: None. Specimen removed: None Fluoroscopic image: saved to electronic medical records PROCEDURE INDICATION: The patient had history of Lumbar degenerative disc disease and Lumbar radiculopathy. Failed to conservative therapy. Presented for epidural steroid injection. PROCEDURE DESCRIPTION: The patient was seen and identified in the preoperative area. Risks, benefits, complications, and alternatives were discussed with the patient. The patient agreed to proceed with the procedure and signed the consent. IV was started, and vital signs were stable. Patient was taken to the procedure area, and time out was completed. The patient was placed in the prone position on procedure table and a pillow was placed under the abdomen to reduce lumbar lordosis. The lumbosacral area was prepped and draped in the usual sterile fashion. Critical pause was taken. Vital signs were closely monitored during the procedure. Using anterior-posterior fluoroscopy, the L4-L5 interlaminar space was identified, and skin and deeper tissues were localized with 4 ml of 1% lidocaine. Using anterior-posterior fluoroscopy, lateral fluoroscopy, and frku-[id number] technique, a 20 gauge 3.5 Tuohy epidural needle entered the epidural space. After negative aspiration of CSF and blood with no paresthesias, 2 ml of [id number] contrast dye was injected and an excellent epidurogram was seen. Again after negative aspiration of CSF and blood with no paresthesias, 8 mL of block solution was injected into the epidural space. Block solution contained 80 mg of Depo-Medrol, and 7 mL of preservative-free normal saline. Needle was withdrawn intact, skin was cleansed, and bandages were applied. COMPLICATIONS: None. DISPOSITION / PLANS: The patient was placed in a supine position and transferred to the recovery area in a stable condition for observation. Patient was discharged from the recovery room after meeting discharge criteria. Home discharge instructions given to the patient by the staff. The patient was reexamined prior to discharge. The patient will schedule a follow up in the clinic in 4 weeks.
[2022-02-02] MEDS ORDERED: IV FLUID CONTINUATION 900 ML IV ONE (12:23)
[2022-02-02 12:26] VITALS: RESP 16
[2022-02-02 12:38] VITALS: BP 132/82; PULSE 87
--- NOTE | 2022-02-02 12:48 | FL ---
EXAMINATION TYPE: FL guided pain mgmt statistic DATE OF EXAM: 02/02/2022 CLINICAL HISTORY: Low back pain. TECHNIQUE: Fluoroscopy. COMPARISON: CT abdomen and pelvis January 19, 2022 FINDINGS: Fluoroscopic guidance was provided during pain relief procedure performed by Dr. Moreno . A total of 7 seconds of fluoroscopic time was utilized during the procedure and 3 spot images are acquired. Images acquired shows needle localization at L5 level with contrast injection. IMPRESSION: As Above.
== END 2022-02-02 12:53 | disposition home or self-care (01) ==
LOC: ORPAIN 11:07
DX: M51.16 Intervertebral disc disorders with radiculopathy, lumbar region (principal); M54.50 Low back pain, unspecified; R06.02 Shortness of breath; E78.00 Pure hypercholesterolemia, unspecified; I10 Essential (primary) hypertension; Z90.10 Acquired absence of unspecified breast and nipple; Z90.49 Acquired absence of other specified parts of digestive tract; Z90.710 Acquired absence of both cervix and uterus; Z48.816 Encounter for surgical aftercare following surgery on the genitourinary system; Z85.3 Personal history of malignant neoplasm of breast; Z91.040 Latex allergy status
CPT/HCPCS: 62323; J2250; J1040; J3010; Q9966; 99152

== ENCOUNTER → 2022-03-02 | Outpatient (CLI) | payer MEDICARE ==
[2022-03-02 13:24] VITALS: BP 141/75; PULSE 73; RESP 18; TEMP 97.9
--- NOTE | 2022-03-02 13:41 | P.PAINPG ---
PQRS Measure Charge Sheet Comment: A 81 yr old female with a history of severe and chronic low back pain secondary to lumbar degenerative disc diseases and lumbar spondylosis with facet arthropathy without myelopathy presents today for evaluation s/p RUBENS L4-L5 #1. Pt states she experienced 50% pain relief x 4 wks s/p procedure. Pain level is currently at 3/10 in intensity, constant, lower lumbar spine, deep achy in character w shooting towards R hip. Pain is provoked by bending/twisting/lifting. Pain is alleviated with PT in November 2021, home exercise as tolerated, massage therapy in 2020, alternating heat & ice, meds (Tramadol, Lidoderm by Dr Mejia), repositioning and rest Interventional pain procedures completed include RUBENS L4-L5 x1. Patient is currently on Tramadol, Lidoderm Patient denies any side effects of the medication(s), denies excessive drowsiness or sleepiness, denies suicidal ideation and reports that the current pain medication is helping to control the pain and improve activities of daily living. Patient denies any motor or sensory deficits. Patient denies any fever or night sweats, denies any change in the bowel movements or urination. Physical Examination: -Constitutional: Cooperative. Not in acute distress . - Neurologic: Cranial nerve II to XII intact. No focal neurological deficits. - Psychatric: Alert & oriented x 3. Matching mood & appropriate affect. Judgment and insight intact. - Musculoskeletal: Cervical spine: Muscle bulk/ tone/ strength in the bilateral upper extremities normal Vertebral body tenderness to palpation over Spurling test positive Distraction test positive Facet loading test positive Thoracic spine Muscle bulk / tone/ strength in the bilateral paraspinal muscles normal Vertebral body tender to palpation over Facet loading test positive Lumbar spine: Motor bulk/ tone/ strength lower extremities , thigh and legs : 5/5 Deep tendon reflexes : Normal Knee Jerk. Normal Ankle Jerk . Vertebral body tenderness to palpation over L4 Lumbar Facet Loading Test positive Straight Leg Raise: positive at 30 degrees right side/ left side Gaenslen's Test positive Sacral spine : Severe tenderness over the Sacroiliac joint: right side / left side Range of motion: Flexion of the lumbar spine <60 degrees Range of motion: Extension of the lumbar spine <20 degrees Gaenslen's Test positive Delbert's Test positive Camden test: positive right side / left side Thigh Thrust Test Sacral Thrust Test Assessment and plan: Chronic low back pain secondary to lumbar degenerative disc disease , lumbar spondylosis with facet arthropathy without myelopathy Recommendation of RUBENS L4-L5 #2. May need a series of injections, up to 3 within a 6 mo period, for optimal pain relief. Risks, benefits of procedure discussed and pt verbalized understanding. Admits to anticoagulant use or medical history of diabetes. Protocol for discontinuation/ continuation of meds марина procedure discussed. All patient questions answered I have spent less than 30 minutes on patient care today. Dr Moreno was available by phone for the evaluation of this patient. The time was used to review the medical records including relevant urine studies and Prescription history (MAPs), review of the available imaging, evaluation and examination of the patient, coordination of care with the medical staff and if applicable referring physicians, as well as creation of the medical record PQRS Narrative: Smoking Status Never smoker Hx Alcohol Use (MH) No Home Medications: Ambulatory Orders Ascorbic Acid [Vitamin C] 1,000 mg PO DAILY 01/19/17 Aspirin EC [Ecotrin Low Dose] 81 mg PO DAILY 01/19/17 Cholecalciferol (Vitamin D3) [Vitamin D3] 4,000 unit PO DAILY 01/19/17 Multivitamins, Thera [Multivitamin (formulary)] 1 tab PO DAILY 01/19/17 SUMAtriptan succinate [Imitrex] 50 mg PO DIRECTED PRN 01/19/17 Albuterol Inhaler [Ventolin Hfa Inhaler] 2 puff INHALATION RT-Q6H PRN 04/05/20 Atorvastatin [Lipitor] 20 mg PO PC-SUPPER 04/05/20 Verapamil Sr [Isoptin Sr] 180 mg PO QAM 04/05/20 traMADol HCL [Ultram] 50 mg PO Q6HR PRN 04/05/20 Flecainide [Tambocor] 50 mg PO Q12HR #180 tablet 04/08/20 Controlled Substance Measures - Controlled Substance Measures Is patient prescribed a controlled substance at discharge?: No
== END ==
LOC: PNWHC3 12:57
PROVIDERS: ATTEND Specialist
DX: M47.816 Spondylosis without myelopathy or radiculopathy, lumbar region (principal); M51.36 Other intervertebral disc degeneration, lumbar region; G89.29 Other chronic pain; Z91.040 Latex allergy status
CPT/HCPCS: 99211

== ENCOUNTER 2022-04-04 11:35 | Day surgery (SDC) | payer MEDICARE ==
[2022-04-04 12:09] VITALS: TEMP 97.6
[2022-04-04] MEDS ORDERED: IOPAMIDOL M200 10 ML VIAL ONE (12:37)
[2022-04-04] MEDS ORDERED: methylPREDNISolone ACETATE 40 MG/ML 1 ML VIAL ONE (12:37)
--- NOTE | 2022-04-04 12:52 | P.PCN ---
Date of Procedure: 04/04/22 Procedure(s) Performed: PREOPERATIVE DIAGNOSIS: 1- Lumbar Degenerative Disc Diseases 2-Lumbar spondylosis with Facet arthropathy without myelopathy. POSTOPERATIVE DIAGNOSIS: Same as preop diagnosis. PROCEDURE 1. Lumbar epidural steroid injection under fluoroscopic guidance at the L4-5 level. (Fluoroscopy imaging was available in radiology department) 2. Lumbar epidurogram. ANESTHESIA: Local anesthesia with lidocaine 1% 3 mL only EBL: Minimal PROCEDURE INDICATION: The patient with low back pain and radiculitis symptoms unresponsive to conservative treatment. Fluoroscopy was used to optimize visualization of the needle placement and to maximize safety. PROCEDURE DESCRIPTION / TECHNIQUE: The patient was seen and identified in the preoperative area. Risks, benefits, complications including but not limited to infections ,bleeding ,allergic reaction to the medications ,nerve damage and not complete pain releife , and alternatives were discussed with the patient. The patient agreed to proceed with the procedure and signed the consent, and vital signs were stable. Patient was taken to the OR and time out was completed. The patient was placed in the prone position on procedure table and a pillow was placed under the abdomen to reduce lumbar lordosis. The lumbosacral area was prepped and draped in the usual sterile fashion.ere closely monitored during the procedure. Vital signs was monitered during the entire procedure. Using anterior-posterior fluoroscopy, the L4-5 interlaminar space was identified and the skin over this site was marked and then infiltrated with 1% lidocaine subcutaneously. Subsequently, a 20-gauge Tuohy epidural needle was inserted and advanced toward the epidural space using the ``Loss of resistance technique and guided by AP and lateral fluoroscopy. The correct needle position in the epidural space was verified with the injection of 2 mL of the water soluble contrast dye Isovue 200 contrast and observing an excellent epidurogram with the epidural spread of the dye, after negative aspiration for blood and CSF and in the absence of paresthesias. Again after negative aspiration, a 6 ml mixture containing 40 mg of Depo-medrol ( Preservetive Free ), and 2 ml of preservative free Normal Saline, and 2 ml of preservative free lidocaine 1% solution was injected and a washout of epidurogram was seen. Needle was withdrawn intact, skin was cleansed, and bandages were applied. COMPLICATIONS: None DISPOSITION / PLANS: The patient was placed in a supine position and transferred to the recovery area in a stable condition for observation. There was no evidence of lower extremity motor or sensory deficit after the procedure. Patient was discharged from the recovery room after meeting discharge criteria. Home discharge instructions were given to the patient by the staff. The patient was reexamined prior to discharge. The patient will schedule a follow up in the clinic in 2-4 weeks.
[2022-04-04] MEDS ORDERED: LACTATED RINGERS 1,000 ML IV SCH (13:31)
[2022-04-04 13:43] VITALS: BP 130/74; PULSE 85; RESP 20
--- NOTE | 2022-04-04 14:19 | FL ---
Fluoroscopy INDICATION: Pain FINDINGS: Fluoroscopy time: 2 seconds. Images obtained: 1. IMPRESSIONS: 1. Documentation of fluoroscopy.
== END 2022-04-04 13:43 | disposition home or self-care (01) ==
LOC: ORPAIN 11:35
PROVIDERS: ATTEND Specialist
DX: M47.816 Spondylosis without myelopathy or radiculopathy, lumbar region (principal); M51.36 Other intervertebral disc degeneration, lumbar region
CPT/HCPCS: 62323; J1030; Q9966

== ENCOUNTER → 2022-04-24 | Outpatient (CLI) | payer MEDICARE ==
[2022-04-24 11:26] VITALS: BP 144/80; PULSE 86; RESP 18
--- NOTE | 2022-04-24 14:51 | P.PAINPG ---
PQRS Measure Charge Sheet Comment: A 81 yr old female with a history of severe and chronic low back pain secondary to lumbar DDD and spondylosis with facet arthropathy without myelopathy presents today for evaluation s/p RUBENS L4-L5. Pt states she experienced 50% pain relief x 3 wks s/p procedure. Pain level is at 10/10 in intensity, constant, localized in the lower lumbar spine, sharp in character w shooting towards the BL feet. Pain is provoked by bending, lifting. Pain is alleviated with medications (tramadol, Tylenol), topicals, injections, heat, PT 6 weeks in October 2021, daily home stretching regimen as tolerated, reclining and rest. Interventional pain procedures completed include RUBENS L4-L5 Patient is currently on Tramadol, Tylenol Arthritis Patient denies any side effects of the medication(s), denies excessive drowsiness or sleepiness, denies suicidal ideation and reports that the current pain medication is helping to control the pain and improve activities of daily living. Patient denies any motor or sensory deficits. Patient denies any fever or night sweats, denies any change in the bowel movements or urination. Physical Examination: -Constitutional: Cooperative. Not in acute distress . - Neurologic: Cranial nerve II to XII intact. No focal neurological deficits. - Psychatric: Alert & oriented x 3. Matching mood & appropriate affect. Judgment and insight intact. - Musculoskeletal: Cervical spine: Muscle bulk/ tone/ strength in the bilateral upper extremities normal Vertebral body tenderness to palpation over Spurling test positive Distraction test positive Facet loading test positive Thoracic spine Muscle bulk / tone/ strength in the bilateral paraspinal muscles normal Vertebral body tender to palpation over Facet loading test positive Lumbar spine: Motor bulk/ tone/ strength lower extremities , thigh and legs : 5/5 Deep tendon reflexes : Normal Knee Jerk. Normal Ankle Jerk . Vertebral body tenderness to palpation over L5 Lumbar Facet Loading Test positive Straight Leg Raise: positive at 30 degrees right side/ left side Gaenslen's Test positive Sacral spine : Severe tenderness over the Sacroiliac joint: right side / left side Range of motion: Flexion of the lumbar spine <60 degrees Range of motion: Extension of the lumbar spine <20 degrees Gaenslen's Test positive Camden test: positive right side / left side Thigh Thrust Test Sacral Thrust Test Assessment and plan: Chronic low back pain secondary to lumbar degenerative disc disease, spondylosis with facet arthropathy without myelopathy Recommendation of RUBENS L4-L5 #3. May need a series of injections, up to 4 within a 12 mo period, for optimal pain relief. Risks, benefits of procedure discussed and pt verbalized understanding. Admits to anticoagulant use or medical history of diabetes. Protocol for discontinuation / continuation of medications марина procedure discussed. All patient questions answered I have spent less than 30 minutes on patient care today. Dr Moreno was available by phone for the evaluation of this patient. The time was used to review the medical records including relevant urine studies and Prescription his tory (MAPs), review of the available imaging, evaluation and examination of the patient, coordination of care with the medical staff and if applicable referring physicians, as well as creation of the medical record - Pain Location Lower Back Non-Pharmacological Interventions: Heat, Home Exercise, Inactivity, Physical Therapy, Stretching Pharmacological Interventions: Epidural, PRN Medication, Topical Medication PQRS Narrative: Smoking Status Never smoker Hx Alcohol Use (MH) No Home Medications: Ambulatory Orders Ascorbic Acid [Vitamin C] 1,000 mg PO DAILY 01/19/17 Aspirin EC [Ecotrin Low Dose] 81 mg PO DAILY 01/19/17 Cholecalciferol (Vitamin D3) [Vitamin D3] 4,000 unit PO DAILY 01/19/17 Multivitamins, Thera [Multivitamin (formulary)] 1 tab PO DAILY 01/19/17 SUMAtriptan succinate [Imitrex] 50 mg PO DIRECTED PRN 01/19/17 Albuterol Inhaler [Ventolin Hfa Inhaler] 2 puff INHALATION RT-Q6H PRN 04/05/20 Atorvastatin [Lipitor] 20 mg PO PC-SUPPER 04/05/20 Verapamil Sr [Isoptin Sr] 180 mg PO QAM 04/05/20 traMADol HCL [Ultram] 50 mg PO Q6HR PRN 04/05/20 Flecainide [Tambocor] 50 mg PO Q12HR #180 tablet 04/08/20 Magnesium Oxide [Magnesium] 500 mg PO DAILY 03/31/22 Metoprolol Succinate (ER) [Toprol Xl] 12.5 mg PO DAILY 04/04/22 Controlled Substance Measures - Controlled Substance Measures Is patient prescribed a controlled substance at discharge?: No
== END ==
LOC: PNWHC3 11:05
PROVIDERS: ATTEND Specialist
DX: M47.816 Spondylosis without myelopathy or radiculopathy, lumbar region (principal); M51.36 Other intervertebral disc degeneration, lumbar region; G89.29 Other chronic pain; Z79.01 Long term (current) use of anticoagulants; E11.9 Type 2 diabetes mellitus without complications; Z91.040 Latex allergy status; Z79.84 Long term (current) use of oral hypoglycemic drugs
CPT/HCPCS: 99211

== ENCOUNTER 2022-06-01 11:38 | Day surgery (SDC) | payer MEDICARE ==
[2022-05-30 15:45] VITALS: BMI 25.5
[2022-06-01] MEDS ORDERED: LACTATED RINGERS 1,000 ML IV SCH (12:30)
[2022-06-01 12:40] VITALS: TEMP 96.9
[2022-06-01] MEDS ORDERED: LACTATED RINGERS 1,000 ML IV ONE (13:08)
[2022-06-01] MEDS ORDERED: IOPAMIDOL M200 10 ML VIAL ONE (13:11)
[2022-06-01] MEDS ORDERED: MIDAZOLAM 2 MG/2 ML VIAL ONE (13:11)
[2022-06-01] MEDS ORDERED: fentaNYL (PF) 50 MCG/ML 2 ML AMP ONE (13:11)
[2022-06-01] MEDS ORDERED: TRIAMCINOLONE ACETONIDE 40 MG/ML 1 ML VIAL ONE (13:11)
--- NOTE | 2022-06-01 13:23 | P.PCN ---
Date of Procedure: 06/01/22 Description of Procedure: PREOPERATIVE DIAGNOSIS: 1. Lumbar radiculopathy 2. Lumbar post laminectomy syndrome POSTOPERATIVE DIAGNOSIS: 1 Lumbar radiculopathy 2. Lumbar post laminectomy syndrome PROCEDURE 1. Lumbar epidural steroid injection under fluoroscopic guidance at the L4-51 level. 2. Lumbar epidurogram. ANESTHESIA: Local with 1% lidocaine 3 ml and IV sedation with Versed 0.5mg ,and fentanyl 50 mcg EBL: Minimal PROCEDURE INDICATION: The patient with low back pain and radiculitis symptoms unresponsive to conservative treatment. Fluoroscopy was used to optimize visualization of the needle placement and to maximize safety. PROCEDURE DESCRIPTION / TECHNIQUE: The patient was seen and identified in the preoperative area. Risks, benefits, complications including but not limited to infections ,bleeding ,allergic reaction to the medications ,nerve damage and not complete pain releife , and alternatives were discussed with the patient. The patient agreed to proceed with the procedure and signed the consent. IV was started, and vital signs were stable. Patient was taken to the OR and time out was completed. The patient was placed in the prone position on procedure table and a pillow was placed under the abdomen to reduce lumbar lordosis. The lumbosacral area was prepped and draped in the usual sterile fashion.ere closely monitored during the procedure. Conscious sedation was used during the procedure to decrease patients anxiety. Vital signs was monitered during the entire procedure. Using anterior-posterior fluoroscopy, the L4-L5 interlaminar space was identified and the skin over this site was marked and then infiltrated with 1% lidocaine subcutaneously. Subsequently, a 20-gauge Tuohy epidural needle was inserted and advanced toward the epidural space using the ``Loss of resistance technique and guided by AP fluoroscopy. The correct needle position in the epidural space was verified with the injection of 2 mL of the water soluble contrast dye Omnipaque 180 contrast and observing an excellent epidurogram with the epidural spread of the dye, after negative aspiration for blood and CSF and in the absence of paresthesias. Again after negative aspiration, a 5 ml mixture containing 40 mg of Kenalog and 4 ml of preservative free Normal Saline was injected and a washout of epidurogram was seen. Needle was withdrawn intact, skin was cleansed, and bandages were applied. COMPLICATIONS: None DISPOSITION / PLANS: The patient was placed in a supine position and transferred to the recovery area in a stable condition for observation. There was no evidence of lower extremity motor or sensory deficit after the procedure. Patient was discharged from the recovery room after meeting discharge criteria. Home discharge instructions were given to the patient by the staff. The patient was reexamined prior to discharge. The patient will schedule a follow up in the clinic in 2-4 weeks.
[2022-06-01] MEDS ORDERED: IV FLUID CONTINUATION 1,000 ML IV ONE (13:24)
[2022-06-01 13:50] VITALS: BP 135/83; PULSE 85; RESP 18
--- NOTE | 2022-06-01 13:57 | FL ---
Intraoperative/procedural fluoroscopic services were provided. Total fluoroscopy time is 4 seconds wi th a total of 2 submitted images to PACS. Please see the operative/procedural note for further detail s.
== END 2022-06-01 13:59 | disposition home or self-care (01) ==
LOC: ORPAIN 11:38
PROVIDERS: ATTEND Anesthesiology
DX: M54.16 Radiculopathy, lumbar region (principal); M96.1 Postlaminectomy syndrome, not elsewhere classified
CPT/HCPCS: 62323; J2250; J3301; J3010; Q9966

== ENCOUNTER → 2022-06-22 | Outpatient (CLI) | payer MEDICARE ==
--- NOTE | 2022-06-22 14:58 | P.PAINPG ---
PQRS Measure Charge Sheet Comment: A 81 yr old female with a history of severe and chronic low back pain secondary to lumbar DDD and spondylosis with facet arthropathy without myelopathy presents today for evaluation s/p RUBENS L4-L5. Pt states she experienced 80 % pain relief x 3 wks s/p procedure. Pain level is fluctuates at 0-8 /10 in intensity, constant, localized in the center L lumbar spine, burning in character without radiation of pain. Pain is provoked by bending. Pain is alleviated with PT x 6 wks in 2021, heat, ice, medications (Tramadol, Tyl Arth), Lidoderm, sitting, repositioning and rest. Interventional pain procedures completed include RUBENS L4-L5 Patient is currently on Tramadol, Tylenol Arthritis Patient denies any side effects of the medication(s), denies excessive drowsiness or sleepiness, denies suicidal ideation and reports that the current pain medication is helping to control the pain and improve activities of daily living. Patient denies any motor or sensory deficits. Patient denies any fever or night sweats, denies any change in the bowel movements or urination. Physical Examination: -Constitutional: Cooperative. Not in acute distress . - Neurologic: Cranial nerve II to XII intact. No focal neurological deficits. - Psychatric: Alert & oriented x 3. Matching mood & appropriate affect. Judgment and insight intact. - Musculoskeletal: Cervical spine: Muscle bulk/ tone/ strength in the bilateral upper extremities normal Vertebral body tenderness to palpation over Spurling test positive Distraction test positive Facet loading test positive Thoracic spine Muscle bulk / tone/ strength in the bilateral paraspinal muscles normal Vertebral body tender to palpation over Facet loading test positive Lumbar spine: Motor bulk/ tone/ strength lower extremities , thigh and legs : 5/5 Deep tendon reflexes : Normal Knee Jerk. Normal Ankle Jerk . Vertebral body tenderness to palpation over Lumbar Facet Loading Test positive Straight Leg Raise: positive at 30 degrees right side/ left side Gaenslen's Test positive Sacral spine : Severe tenderness over the Sacroiliac joint: right side / left side Range of motion: Flexion of the lumbar spine <60 degrees Range of motion: Extension of the lumbar spine <20 degrees Gaenslen's Test positive [place] test: positive right side / left side Thigh Thrust Test Sacral Thrust Test Assessment and plan: Chronic low back pain secondary to lumbar degenerative disc disease, spondylosis with facet arthropathy without myelopathy Pt exhibited substantial pain relief w RUBENS L4-5 x3. Will follow up w Dr Saunders and may return to our clinic on an as needed basis. All patient questions answered I have spent less than 30 minutes on patient care today. Dr Moreno was available by phone for the evaluation of this patient. The time was used to review the medical records including relevant urine studies and Prescription history (MAPs), review of the available imaging, evaluation and examination of the patient, coordination of care with the medical staff and if applicable referring physicians, as well as creation of the medical record PQRS Narrative: Smoking Status Never smoker Hx Alcohol Use (MH) No Home Medications: Ambulatory Orders Ascorbic Acid [Vitamin C] 1,000 mg PO DAILY 01/19/17 Aspirin EC [Ecotrin Low Dose] 81 mg PO DAILY 01/19/17 Cholecalciferol (Vitamin D3) [Vitamin D3] 100 mcg PO DAILY 01/19/17 Multivitamins, Thera [Multivitamin (formulary)] 1 tab PO DAILY 01/19/17 SUMAtriptan succinate [Imitrex] 50 mg PO DIRECTED PRN 01/19/17 Albuterol Inhaler [Ventolin Hfa Inhaler] 2 puff INHALATION RT-Q6H PRN 04/05/20 Atorvastatin [Lipitor] 20 mg PO PC-SUPPER 04/05/20 traMADol HCL [Ultram] 50 mg PO Q6HR PRN 04/05/20 Flecainide [Tambocor] 50 mg PO Q12HR #180 tablet 04/08/20 Magnesium Oxide [Magnesium] 500 mg PO DAILY 03/31/22 Metoprolol Succinate (ER) [Toprol Xl] 12.5 mg PO DAILY 04/04/22 Verapamil HCl [Verapamil ER] 180 mg PO DAILY 05/30/22 Controlled Substance Measures - Controlled Substance Measures Is patient prescribed a controlled substance at discharge?: No
[2022-06-22 15:10] VITALS: BP 143/78; PULSE 76; RESP 18; TEMP 98.2
== END ==
LOC: PNWHC3 13:01
PROVIDERS: ATTEND Specialist
DX: M47.816 Spondylosis without myelopathy or radiculopathy, lumbar region (principal); M51.36 Other intervertebral disc degeneration, lumbar region; G89.29 Other chronic pain; Z79.82 Long term (current) use of aspirin; Z91.040 Latex allergy status
CPT/HCPCS: 99211